=== PATIENT | female | born 1995 | race Caucasian/White ===

== ENCOUNTER → 2016-09-21 | Outpatient (CLI) | payer BC | LOC: MW.CHOBGYN 09:10 | PROVIDERS: ATTEND Advanced Practice Midwife | DX: Z34.90 Encounter for supervision of normal pregnancy, unspecified, unspecified trimester (principal) | CPT/HCPCS: 36415; 80305; 81003; 85025; 86592; 86762; 86803; 86850; 86900; 86901; 87070; 87086; 87340; 87389; 87491; 87591; G0145 ==

== ENCOUNTER → 2016-10-19 | Outpatient (CLI) | payer BC | LOC: MW.CHOBGYN 10:03 | PROVIDERS: ATTEND Advanced Practice Midwife | DX: Z34.90 Encounter for supervision of normal pregnancy, unspecified, unspecified trimester (principal) | CPT/HCPCS: 36415; 82105; 82677; 84702; 86336 ==

== ENCOUNTER 2017-04-03 11:01 | Inpatient (IN) | payer BC ==
[2017-04-03] MEDS ORDERED: Nalbuphine 10 MG/1 ML Vial IVPUSH PRN (15:29)
[2017-04-03] MEDS ORDERED: Carboprost Tromethamine 250 MCG/1 ML Amp IM PRN (15:29)
[2017-04-03] MEDS ORDERED: Terbutaline 1 MG/ML SDV SUBCUT PRN (15:29)
[2017-04-03] MEDS ORDERED: Sodium Chloride 0.9% 2.5 ML Syringe FLUSH PRN (15:29)
[2017-04-03] MEDS ORDERED: Water For Irrigation,Sterile 1,000 ML Container IRR PRN (15:29)
[2017-04-03] MEDS ORDERED: Misoprostol 200 MCG Tab PO PRN (15:29)
[2017-04-03] MEDS ORDERED: Sodium Chloride 0.9% 10 ML Syringe FLUSH PRN (15:29)
[2017-04-03] MEDS ORDERED: Methylergonovine 0.2 MG/1 ML Amp IM PRN (15:29)
[2017-04-03] MEDS ORDERED: Lidocaine 1% 50 ML MDV INJECT PRN (15:29)
[2017-04-03] MEDS ORDERED: Oxytocin/0.9 % Sodium Chloride 30 UNIT/500 ML BAG IV SCH ×2 (15:30→20:00)
[2017-04-03] MEDS ORDERED: Misoprostol 25 MCG (1/4 of 100 MCG) Tab PO SCH (16:00)
[2017-04-03] MEDS ORDERED: Misoprostol 25 MCG (1/4 of 100 MCG) Tab VAG SCH (16:00)
[2017-04-03] MEDS ORDERED: Ampicillin 2 GM in Sodium Chloride 0.9% 100 ML IV ONE (16:00)
[2017-04-03] MEDS: Lactated Ringers 1,000 ML IV SCH ×3 (16:01→22:40)
[2017-04-03] MEDS ORDERED: Misoprostol 25 MCG (1/4 of 100 MCG) Tab PO PRN (20:00)
[2017-04-03] MEDS ORDERED: Misoprostol 25 MCG (1/4 of 100 MCG) Tab VAG PRN (20:00)
[2017-04-03] MEDS: Ampicillin 1 GM in Sodium Chloride 0.9% 50 ML IV SCH (22:17)
[2017-04-03] MEDS ORDERED: fentaNYL 100 MCG/2 ML SDV ONE (22:34)
[2017-04-03] MEDS ORDERED: Ropivacaine 0.2% 2 MG/ML 20 ML SDV ONE (22:35)
[2017-04-03] MEDS ORDERED: Ropivacaine HCl/PF 100 ML ONE (22:36)
--- NOTE | 2017-04-03 22:49 | PCM.LDHP ---
L&D History of Present Illness - General Date of Service: 04/03/17 Admit Problem/Dx: Patient Status Order with Admit Dx/Problem 04/03/17 11:15 Patient Status [ADT] Routine Admission Diagnosis/Problem Admission Diagnosis/Problem Source of Information: Patient History Limitations: Reports: No Limitations - History of Present Illness Pain Score: 10 Improves with: Reports: None Worsens with: Reports: None Associated Symptoms: Reports: N - Related Data Allergies/Adverse Reactions: Allergies Allergy/AdvReac Type Severity Reaction Status Date / Time Sulfa (Sulfonamide Allergy Rash Verified 04/01/17 19:53 Antibiotics) Home Medications: Home Meds Vit W-Ca,Fe,FA(<1 mg) [ Vitamins] 1 tab PO DAILY 04/01/17 [ History] Past Medical History - Past Health History Medical/Surgical History: Denies Medical/Surgical History Social & Family History - Family History Family Medical History: Noncontributory - Tobacco Use Smoking Status *Q: Never Smoker Second Hand Smoke Exposure: No - Caffeine Use Caffeine Use: Reports: None - Alcohol Use Days Per Week of Alcohol Use: 0 - Recreational Drug Use Recreational Drug Use: No H&P Review of Systems - Review of Systems: Review Of Systems: See Below General: Reports: No Symptoms HEENT: Reports: No Symptoms Pulmonary: Reports: No Symptoms Cardiovascular: Reports: No Symptoms Gastrointestinal: Reports: No Symptoms Genitourinary: Reports: No Symptoms Musculoskeletal: Reports: No Symptoms Skin: Reports: No Symptoms Psychiatric: Reports: No Symptoms Neurological: Reports: No Symptoms Hematologic/Lymphatic: Reports: No Symptoms Immunologic: Reports: No Symptoms L&D Exam - Exam Exam: See Below - Vital Signs Weight: 64.864 kg - OB Specific Fundal Height In cm: 37 Contraction Intensity: Moderate to Strong Movement: Active Heart Tones: Present Presentation: Vertex - Vergara Score Vergara Score Cervix Position: Midposition Vergara Score Consistency: Medium Vergara Score Effacement: 51-70% Vergara Score Dilation: 3-4 cm Vergara Score 's Station: -2 Vergara Score Total: 7 - Exam General: Alert, Oriented HEENT: PERRLA, Conjunctiva Clear, EACs Clear, EOMI, Hearing Intact, Mucosa Moist & [place], Nares Patent, Normal Nasal Septum, Posterior Pharynx Clear, TMs Clear Neck: Supple, Trachea Midline Lungs: Clear to Auscultation, Normal Respiratory Effort Cardiovascular: Regular Rate, Regular Rhythm GI/Abdominal Exam: Normal Bowel Sounds, Soft, Non-Tender, No Organomegaly, No Distention, No Abnormal Bruit, No Mass, Pelvis Stable Rectal Exam: Normal Exam, Normal Rectal Tone Genitourinary: Normal external exam, Normal bimanual exam, Normal speculum exam Back Exam: Normal Inspection, Full Range of Motion Extremities: Normal Inspection, Normal Range of Motion, Non-Tender, No Pedal Edema, Normal Capillary Refill Skin: Warm, Dry, Intact Neurological: Cranial Nerves Intact, Reflexes Equal Bilateral Psychiatric: Alert, Normal Affect, Normal Mood - Patient Data Lab Results Last 24 hrs: Laboratory Results - last 24 hr 04/03/17 04/03/17 Range/Units 15:55 15:55 WBC 6.25 (4.0-11.0) K/uL RBC 4.34 (4.30-5.90) M/uL Hgb 12.6 (12.0-16.0) g/dL Hct 36.6 (36.0-46.0) % MCV 84.3 (80.0-98.0) fL MCH 29.0 (27.0-32.0) pg MCHC 34.4 (31.0-37.0) g/dL RDW Std Deviation 42.6 (28.0-62.0) fl RDW Coeff of Raz 14 (11.0-15.0) % Plt Count 163 (150-400) K/uL MPV 12.10 H (7.40-12.00) fL Nucleated RBC % 0.0 /100WBC Nucleated RBCs # 0 K/uL Blood Type O POSITIVE Antibody Screen NEGATIVE Result Diagrams: 04/03/17 15:55 Problem List Initiated/Reviewed/Updated: Yes Orders Last 24hrs: Active Orders 24 hr Category Date Time Status Patient Status [ADT] Routine ADT 04/03/17 11:15 Active Bedrest Bathroom Privileges [RC] ASDIRECTED Care 04/03/17 15:29 Active Communication Order [RC] ASDIRECTED Care 04/03/17 15:29 Active Communication Order [RC] ASDIRECTED Care 04/03/17 15:29 Active Communication Order [RC] ASDIRECTED Care 04/03/17 15:29 Active Heart Tones [RC] CONTINUOUS Care 04/03/17 15:29 Active Non Stress Test [RC] PER UNIT ROUTINE Care 04/03/17 15:29 Active May Shower [RC] ASDIRECTED Care 04/03/17 15:29 Active Notify Provider [RC] PRN Care 04/03/17 15:29 Active Notify Provider [RC] PRN Care 04/03/17 15:29 Active Notify Provider [RC] PRN Care 04/03/17 15:29 Active Notify Provider [RC] STAT Care 04/03/17 15:29 Active Oxygen Therapy [RC] ASDIRECTED Care 04/03/17 15:29 Active Peripheral IV Care [RC] . DIRECTED Care 04/03/17 15:29 Active Up ad Alisha [RC] ASDIRECTED Care 04/03/17 15:29 Active Vaginal Exam [RC] PRN Care 04/03/17 15:29 Active Vaginal Exam [RC] PRN Care 04/03/17 15:29 Active Vital Signs [RC] PER UNIT ROUTINE Care 04/03/17 15:29 Active Vital Signs [RC] PER UNIT ROUTINE Care 04/03/17 15:29 Active Regular Diet [DIET] Diet 04/03/17 Dinner Active Ampicillin 1 gm Med 04/03/17 20:00 Active Sodium Chloride 0.9% [Normal Saline] 50 ml IV Q4H Carboprost Tromethamine [Hemabate DS] Med 04/03/17 15:29 Active 250 mcg IM ASDIRECTED PRN Lactated Ringers [Ringers, Lactated] 1,000 ml Med 04/03/17 15:30 Active IV ASDIRECTED Lidocaine 1% [Xylocaine 1%] Med 04/03/17 15:29 Active 50 ml INJECT .ONCE PRN Methylergonovine [Methergine] Med 04/03/17 15:29 Active 0.2 mg IM ASDIRECTED PRN Misoprostol [Cytotec] Med 04/03/17 15:29 Active 200 mcg PO .ONCE PRN Misoprostol [Cytotec] Med 04/03/17 16:00 Active 25 mcg PO .ONCE Misoprostol [Cytotec] Med 04/03/17 20:00 Active 25 mcg PO Q4H PRN Misoprostol [Cytotec] Med 04/03/17 16:00 Active 25 mcg VAG .ONCE Misoprostol [Cytotec] Med 04/03/17 20:00 Active 25 mcg VAG Q4H PRN Nalbuphine [Nubain] Med 04/03/17 15:29 Active 10 mg IVPUSH Q1H PRN Oxytocin/0.9 % Sodium Chloride [Oxytocin 30 Unit/500 ML Med 04/03/17 15:30 Active -NS] 30 unit in 500 ml IV TITRATE Oxytocin/0.9 % Sodium Chloride [Oxytocin 30 Unit/500 ML Med 04/03/17 20:00 Active -NS] 30 unit in 500 ml IV TITRATE Sodium Chloride 0.9% [Saline Flush] Med 04/03/17 15:29 Active 10 ml FLUSH ASDIRECTED PRN Sodium Chloride 0.9% [Saline Flush] Med 04/03/17 15:29 Active 2.5 ml FLUSH ASDIRECTED PRN Terbutaline [Brethine] Med 04/03/17 15:29 Active 0.25 mg SUBCUT ASDIRECTED PRN Water For Irrigation,Sterile [Sterile Water for Med 04/03/17 15:29 Active Irrigation] 1,000 ml IRR ASDIRECTED PRN Scalp Electrode [WOMSER] Per Unit Routine Oth 04/03/17 15:29 Ordered Medication Administration Instruction [OM.PC] Q3H Oth 04/03/17 15:30 Ordered Peripheral IV Insertion Adult [OM.PC] Routine Oth 04/03/17 15:29 Ordered Resuscitation Status Routine Resus Stat 04/03/17 15:29 Ordered Medication Orders Carboprost Tromethamine (Hemabate Ds) 250 mcg IM ASDIRECTED PRN PRN Reason: Post Hemorrhage Ampicillin Sodium 1 gm/ Sodium (Chloride) 50 mls @ 100 mls/hr IV Q4H [facility] Last Admin: 04/03/17 22:17 Dose: 100 mls/hr Lactated Ringer's (Ringers, Lactated) 1,000 mls @ 150 mls/hr IV ASDIRECTED [facility] Last Admin: 04/03/17 22:40 Dose: 150 mls/hr Infusion: 04/03/17 22:40 Dose: 999 mls/hr Admin: 04/03/17 18:29 Dose: 150 mls/hr Infusion: 04/03/17 18:29 Dose: 150 mls/hr Admin: 11/04/17 16:01 Dose: 150 mls/hr Oxytocin/Sodium Chloride (Oxytocin 30 Unit/500 Ml-Ns) 30 unit in 500 mls @ 250 mls/hr IV TITRATE [facility] Oxytocin/Sodium Chloride (Oxytocin 30 Unit/500 Ml-Ns) 30 unit in 500 mls @ 2 mls/hr IV TITRATE [facility]; 2 MUNITS/MIN PRN Reason: Protocol Lidocaine HCl (Xylocaine 1%) 50 ml INJECT .ONCE PRN PRN Reason: Laceration repair Methylergonovine Maleate (Methergine) 0.2 mg IM ASDIRECTED PRN PRN Reason: Post Hemorrhage Misoprostol (Cytotec) 200 mcg PO .ONCE PRN PRN Reason: Post Hemorrhage Misoprostol (Cytotec) 25 mcg VAG .ONCE [facility] Last Admin: 04/03/17 18:36 Dose: 25 mcg Misoprostol (Cytotec) 25 mcg VAG Q4H PRN PRN Reason: Cervical Ripening Misoprostol (Cytotec) 25 mcg PO .ONCE [facility] Last Admin: 04/03/17 18:36 Dose: 25 mcg Misoprostol (Cytotec) 25 mcg PO Q4H PRN PRN Reason: Cervical Ripening Nalbuphine HCl (Nubain) 10 mg IVPUSH Q1H PRN PRN Reason: Pain (severe 7-10) Last Admin: 04/03/17 22:16 Dose: 10 mg Sodium Chloride (Saline Flush) 10 ml FLUSH ASDIRECTED PRN PRN Reason: Keep Vein Open Sodium Chloride (Saline Flush) 2.5 ml FLUSH ASDIRECTED PRN PRN Reason: Keep Vein Open Sterile Water (Sterile Water For Irrigation) 1,000 ml IRR ASDIRECTED PRN PRN Reason: delivery Terbutaline Sulfate (Brethine) 0.25 mg SUBCUT ASDIRECTED PRN PRN Reason: Tacysystole Assessment/Plan Comment:: Term admitted for elective induction. with Cytotec and pitocin. Cxis /v/-3. Pt can havr epidural if she needed.
--- NOTE | 2017-04-03 23:25 | PCM.PREANE ---
Preanesthetic Assessment - Anesthesia/Transfusion/Family Hx Anesthesia History: No Prior Anesthesia Family History of Anesthesia Reaction: No Transfusion History: No Prior Transfusion(s) - Review of Systems General: No Symptoms Pulmonary: No Symptoms Cardiovascular: No Symptoms Gastrointestinal: No Symptoms Neurological: No Symptoms Other: Reports: None (Denies any personal or family hx of bleeding or clotting problems) - Physical Assessment Height: 1.57 m Weight: 64.864 kg ASA Class: 2 Mental Status: Alert & Oriented x3 Airway Class: Mallampati = 2 Dentition: Reports: Normal Dentition ROM/Head Extension: Full - Lab Values: Laboratory Last Values WBC 6.25 K/uL (4.0-11.0) 04/03/17 15:55 RBC 4.34 M/uL (4.30-5.90) 04/03/17 15:55 Hgb 12.6 g/dL (12.0-16.0) 04/03/17 15:55 Hct 36.6 % (36.0-46.0) 04/03/17 15:55 MCV 84.3 fL (80.0-98.0) 04/03/17 15:55 MCH 29.0 pg (27.0-32.0) 04/03/17 15:55 MCHC 34.4 g/dL (31.0-37.0) 04/03/17 15:55 RDW Std Deviation 42.6 fl (28.0-62.0) 04/03/17 15:55 RDW Coeff of Raz 14 % (11.0-15.0) 04/03/17 15:55 Plt Count 163 K/uL (150-400) 04/03/17 15:55 MPV 12.10 fL (7.40-12.00) H 04/03/17 15:55 Nucleated RBC % 0.0 /100WBC 04/03/17 15:55 Nucleated RBCs # 0 K/uL 04/03/17 15:55 Blood Type O POSITIVE 04/03/17 15:55 Antibody Screen NEGATIVE 04/03/17 15:55 - Allergies Allergies/Adverse Reactions: Allergies Allergy/AdvReac Type Severity Reaction Status Date / Time Sulfa (Sulfonamide Allergy Rash Verified 04/01/17 19:53 Antibiotics) - Acknowledgements Anesthesia Type Planned: Epidural Pt an Appropriate Candidate for the Planned Anesthesia: Yes Alternatives and Risks of Anesthesia Discussed w Pt/Guardian: Yes Pt/Guardian Understands and Agrees with Anesthesia Plan: Yes PreAnesthesia Questionnaire - Past Health History Medical/Surgical History: Denies Medical/Surgical History - SUBSTANCE USE Smoking Status *Q: Never Smoker Tobacco Use Within Last Twelve Months: No Second Hand Smoke Exposure: No Days Per Week of Alcohol Use: 0 Recreational Drug Use History: No - HOME MEDS Home Medications: Home Meds Vit W-Ca,Fe,FA(<1 mg) [ Vitamins] 1 tab PO DAILY 04/01/17 [ History] - CURRENT (IN HOUSE) MEDS Current Meds: Current Medications Carboprost Tromethamine (Hemabate Ds) 250 mcg IM ASDIRECTED PRN PRN Reason: Post Hemorrhage Ampicillin Sodium 1 gm/ Sodium (Chloride) 50 mls @ 100 mls/hr IV Q4H [facility] Last Admin: 04/03/17 22:17 Dose: 100 mls/hr Lactated Ringer's (Ringers, Lactated) 1,000 mls @ 150 mls/hr IV ASDIRECTED [facility] Last Admin: 04/03/17 22:40 Dose: 150 mls/hr Oxytocin/Sodium Chloride (Oxytocin 30 Unit/500 Ml-Ns) 30 unit in 500 mls @ 250 mls/hr IV TITRATE [facility] Oxytocin/Sodium Chloride (Oxytocin 30 Unit/500 Ml-Ns) 30 unit in 500 mls @ 2 mls/hr IV TITRATE [facility]; 2 MUNITS/MIN PRN Reason: Protocol Lidocaine HCl (Xylocaine 1%) 50 ml INJECT .ONCE PRN PRN Reason: Laceration repair Methylergonovine Maleate (Methergine) 0.2 mg IM ASDIRECTED PRN PRN Reason: Post Hemorrhage Misoprostol (Cytotec) 200 mcg PO .ONCE PRN PRN Reason: Post Hemorrhage Misoprostol (Cytotec) 25 mcg VAG .ONCE [facility] Last Admin: 04/03/17 18:36 Dose: 25 mcg Misoprostol (Cytotec) 25 mcg VAG Q4H PRN PRN Reason: Cervical Ripening Misoprostol (Cytotec) 25 mcg PO .ONCE [facility] Last Admin: 04/03/17 18:36 Dose: 25 mcg Misoprostol (Cytotec) 25 mcg PO Q4H PRN PRN Reason: Cervical Ripening Nalbuphine HCl (Nubain) 10 mg IVPUSH Q1H PRN PRN Reason: Pain (severe 7-10) Last Admin: 04/03/17 22:16 Dose: 10 mg Sodium Chloride (Saline Flush) 10 ml FLUSH ASDIRECTED PRN PRN Reason: Keep Vein Open Sodium Chloride (Saline Flush) 2.5 ml FLUSH ASDIRECTED PRN PRN Reason: Keep Vein Open Sterile Water (Sterile Water For Irrigation) 1,000 ml IRR ASDIRECTED PRN PRN Reason: delivery Terbutaline Sulfate (Brethine) 0.25 mg SUBCUT ASDIRECTED PRN PRN Reason: Tacysystole Discontinued Medications Fentanyl (Sublimaze) Confirm Administered Dose 300 mcg .ROUTE .STK-MED ONE Stop: 04/03/17 22:35 Ampicillin Sodium 2 gm/ Sodium (Chloride) 100 mls @ 200 mls/hr IV ONETIME ONE Stop: 04/03/17 16:29 Last Admin: 04/03/17 18:25 Dose: 200 mls/hr Ropivacaine (Naropin 0.2%) Confirm Administered Dose 100 mls @ as directed .ROUTE .STK-MED ONE Stop: 04/03/17 22:37 Ropivacaine (Naropin 0.2%) Confirm Administered Dose 20 ml .ROUTE .STK-MED ONE Stop: 04/03/17 22:36
[2017-04-04] MEDS: Ampicillin 1 GM in Sodium Chloride 0.9% 50 ML IV SCH ×3 (01:36→09:54)
[2017-04-04] MEDS: Lactated Ringers 1,000 ML IV SCH (05:08)
[2017-04-04] MEDS ORDERED: fentaNYL 100 MCG/2 ML SDV ONE (08:36)
[2017-04-04] MEDS ORDERED: Ropivacaine HCl/PF 100 ML ONE (08:36)
[2017-04-04] MEDS ORDERED: Docusate Sodium 100 MG Cap PO PRN (10:56)
[2017-04-04] MEDS ORDERED: Ibuprofen 400 MG Tab PO PRN (10:56)
[2017-04-04] MEDS ORDERED: Witch Hazel Medicated Pads 40/Jar TOP PRN (10:56)
[2017-04-04] MEDS ORDERED: Bisacodyl 10 MG Supp RECTAL PRN (10:56)
[2017-04-04] MEDS ORDERED: Acetaminophen 500 MG Tab PO PRN ×2 (10:56)
[2017-04-04] MEDS ORDERED: Lanolin 100% Cream 7 GM Tube TOP PRN (10:56)
[2017-04-04] MEDS ORDERED: Benzocaine/Menthol 20%-0.5% Spray 78 GM Cannister TOP PRN (10:56)
[2017-04-04] MEDS ORDERED: oxyCODONE 5 MG Tab PO PRN (10:56)
[2017-04-04] MEDS: Ibuprofen 800 MG Tab PO PRN (12:07)
--- NOTE | 2017-04-04 14:38 | OR ---
SURGEON: Héctor Lowe MD DATE OF PROCEDURE: DELIVERY NOTE: Austin is 21-year-old primigravida. She is 40 weeks plus 3. She is admitted for elective induction with Cytotec and Pitocin. She responded to the Cytotec adequately and after one dose of Cytotec, the patient was 4 cm complete vertex and -3 with intact bag of water. She had epidural anesthesia for labor analgesia and then the patient did not require any Pitocin. She progressed on her own. She became complete-complete at 4 o'clock in the morning and with bulging bag of water, artificial rupture of the membranes done by me and it was meconium-tinged amniotic fluid. The patient is continued to progress and she started pushing and she was allowed to rest to let the epidural wear down and then when that happened that she was able to push and accomplish normal spontaneous vaginal delivery of a female fetus. scores reported 8 and 9, and Dr. Castro attended the delivery. The placenta delivered spontaneous complete and intact without any problem. There was a small first-degree perineal laceration, it was repaired with 3-0 Vicryl after infiltrating the area with 1% Xylocaine. The heart rate was category 1 through the entire process of labor. There was no complication. Estimated blood loss was 250 to 300 mL. OMA / MARCO ANTONIO /[id number]
--- NOTE | 2017-04-05 08:38 | PCM48HPAN ---
Post Anesthesia Note - EVALUATION WITHIN 48HRS OF ANESTHETIC Vital Signs in Normal Range: Yes Patient Participated in Evaluation: Yes Respiratory Function Stable: Yes Airway Patent: Yes Cardiovascular Function Stable: Yes Hydration Status Stable: Yes Pain Control Satisfactory: Yes (a "little" back pain") Nausea and Vomiting Control Satisfactory: Yes Mental Status Recovered: Yes
--- NOTE | 2017-04-05 14:00 | PCM.PNPP ---
- General Info Date of Service: 04/05/17 Functional Status: Reports: Pain Controlled - Review of Systems General: Reports: No Symptoms HEENT: Reports: No Symptoms Pulmonary: Reports: No Symptoms Cardiovascular: Reports: No Symptoms Gastrointestinal: Reports: No Symptoms Genitourinary: Reports: No Symptoms Musculoskeletal: Reports: No Symptoms Skin: Reports: No Symptoms Neurological: Reports: No Symptoms Psychiatric: Reports: No Symptoms - General Info Date of Service: 04/05/17 - Patient Data Vital Signs - Most Recent: Last Vital Signs Temp 37.0 C 04/05/17 11:41 Pulse 85 04/05/17 11:41 Resp 14 04/05/17 11:41 BP 124/59 L 04/05/17 11:41 Pulse Ox 97 04/05/17 11:41 Weight - Most Recent: 64.864 kg I&O - Last 24 Hours: Intake & Output 04/04/17 04/05/17 04/05/17 22:59 06:59 14:59 Output Total 700 Balance -700 Lab Results - Last 24 Hours: Laboratory Results - last 24 hr 04/03/17 04/05/17 Range/Units 15:55 05:05 Hgb 9.9 L (12.0-16.0) g/dL Hct 29.3 L (36.0-46.0) % Blood Type O POSITIVE Med Orders - Current: Current Medications Acetaminophen (Tylenol Extra Strength) 500 mg PO Q4H PRN PRN Reason: Pain Last Admin: 04/04/17 15:43 Dose: 500 mg Acetaminophen (Tylenol Extra Strength) 1,000 mg PO Q4H PRN PRN Reason: Pain Last Admin: 04/04/17 12:07 Dose: 1,000 mg Benzocaine/Menthol (Dermoplast Pain Relief 20%-0.5% [place]) 78 gm TOP ASDIRECTED PRN PRN Reason: Perineal Comfort Measure Bisacodyl (Dulcolax) 10 mg RECTAL .ONCE PRN PRN Reason: Constipation Carboprost Tromethamine (Hemabate Ds) 250 mcg IM ASDIRECTED PRN PRN Reason: Post Hemorrhage Docusate Sodium (Colace) 100 mg PO BID PRN PRN Reason: Constipation Last Admin: 04/04/17 12:08 Dose: 100 mg Emollient Ointment (Lansinoh Hpa) 0 gm TOP ASDIRECTED PRN PRN Reason: Sore Nipples Ampicillin Sodium 1 gm/ Sodium (Chloride) 50 mls @ 100 mls/hr IV Q4H [facility] Last Admin: 04/04/17 09:54 Dose: 100 mls/hr Lactated Ringer's (Ringers, Lactated) 1,000 mls @ 150 mls/hr IV ASDIRECTED [facility] Last Admin: 04/04/17 05:08 Dose: 150 mls/hr Oxytocin/Sodium Chloride (Oxytocin 30 Unit/500 Ml-Ns) 30 unit in 500 mls @ 250 mls/hr IV TITRATE [facility] Last Admin: 04/04/17 10:50 Dose: 500 mls/hr Oxytocin/Sodium Chloride (Oxytocin 30 Unit/500 Ml-Ns) 30 unit in 500 mls @ 2 mls/hr IV TITRATE [facility]; 2 MUNITS/MIN PRN Reason: Protocol Ibuprofen (Motrin) 400 mg PO Q4H PRN PRN Reason: Pain Ibuprofen (Motrin) 800 mg PO Q6H PRN PRN Reason: Pain Last Admin: 04/04/17 12:07 Dose: 800 mg Lidocaine HCl (Xylocaine 1%) 50 ml INJECT .ONCE PRN PRN Reason: Laceration repair Last Admin: 04/04/17 11:29 Dose: 50 ml Methylergonovine Maleate (Methergine) 0.2 mg IM ASDIRECTED PRN PRN Reason: Post Hemorrhage Misoprostol (Cytotec) 200 mcg PO .ONCE PRN PRN Reason: Post Hemorrhage Misoprostol (Cytotec) 25 mcg VAG .ONCE [facility] Last Admin: 04/03/17 18:36 Dose: 25 mcg Misoprostol (Cytotec) 25 mcg VAG Q4H PRN PRN Reason: Cervical Ripening Misoprostol (Cytotec) 25 mcg PO .ONCE [facility] Last Admin: 04/03/17 18:36 Dose: 25 mcg Misoprostol (Cytotec) 25 mcg PO Q4H PRN PRN Reason: Cervical Ripening Nalbuphine HCl (Nubain) 10 mg IVPUSH Q1H PRN PRN Reason: Pain (severe 7-10) Last Admin: 04/03/17 22:16 Dose: 10 mg Oxycodone HCl (Oxycodone) 5 mg PO Q2H PRN PRN Reason: Pain Sodium Chloride (Saline Flush) 10 ml FLUSH ASDIRECTED PRN PRN Reason: Keep Vein Open Sodium Chloride (Saline Flush) 2.5 ml FLUSH ASDIRECTED PRN PRN Reason: Keep Vein Open Sterile Water (Sterile Water For Irrigation) 1,000 ml IRR ASDIRECTED PRN PRN Reason: delivery Last Admin: 04/04/17 11:28 Dose: 1,000 ml Terbutaline Sulfate (Brethine) 0.25 mg SUBCUT ASDIRECTED PRN PRN Reason: Tacysystole Witch Enedelia (Tucks) 1 pad TOP ASDIRECTED PRN PRN Reason: comfort care Discontinued Medications Fentanyl (Sublimaze) Confirm Administered Dose 300 mcg .ROUTE .STK-MED ONE Stop: 04/03/17 22:35 Fentanyl (Sublimaze) Confirm Administered Dose 200 mcg .ROUTE .STK-MED ONE Stop: 04/04/17 08:37 Ampicillin Sodium 2 gm/ Sodium (Chloride) 100 mls @ 200 mls/hr IV ONETIME ONE Stop: 04/03/17 16:29 Last Admin: 04/03/17 18:25 Dose: 200 mls/hr Ropivacaine (Naropin 0.2%) Confirm Administered Dose 100 mls @ as directed .ROUTE .STK-MED ONE Stop: 04/03/17 22:37 Ropivacaine (Naropin 0.2%) Confirm Administered Dose 100 mls @ as directed .ROUTE .STK-MED ONE Stop: 04/04/17 08:37 Ropivacaine (Naropin 0.2%) Confirm Administered Dose 20 ml .ROUTE .STK-MED ONE Stop: 04/03/17 22:36 - Infant Interaction Disposition, : in Room with Family Infant Interaction: Holding Infant Infant Feeding: Attempted ; Nursed Fair/Poor Support Person: , Significant Other - Recovery Exam Fundal Tone: Firm Fundal Level: At Umbilicus Fundal Placement: Midline Lochia Amount: Scant Lochia Color: Rubra/Red Perineum Description: Intact, Minimal Bruising/Swelling Episiotomy/Laceration: Approximated Bladder Status: Voiding Urinary Elimination: Not Voiding - Exam General: Alert, Oriented HEENT: Pupils Equal Neck: Supple Lungs: Clear to Auscultation, Normal Respiratory Effort Cardiovascular: Regular Rate, Regular Rhythm GI/Abdominal Exam: Normal Bowel Sounds, Soft, Non-Tender, No Organomegaly, No Distention, No Abnormal Bruit, No Mass, Pelvis Stable Extremities: Normal Inspection, Normal Range of Motion, Non-Tender, No Pedal Edema, Normal Capillary Refill Skin: Warm, Dry, Intact Wound/Incisions: Healing Well Neurological: No New Focal Deficit Psy/Mental Status: Alert, Normal Affect, Normal Mood - Problem List Review Problem List Initiated/Reviewed/Updated: Yes - Plan Plan:: Term admitted for elective induction. with Cytotec and pitocin. Cxis /v/-3. Pt can havr epidural if she needed.
[2017-04-06 07:46] VITALS: BP 117/65
--- NOTE | 2017-04-06 07:58 | PCM.DCSUM1 ---
Discharge Summary - Hospital Course Free Text/Narrative:: Discharge home today. Follow up 6 weeks or sooner if needed. - Discharge Data Discharge Date: 04/06/17 Discharge Disposition: DC/Tfer to SNF 03 Condition: Good - Discharge Diagnosis/Problem(s) (1) Supervision of normal IUP (intrauterine ) in primigravida SNOMED Code(s): 58141491, 835473668, 584869714 ICD Code: Z34.00 - ENCNTR FOR SUPRVSN OF NORMAL FIRST , UNSP TRIMESTER Status: Acute Priority: High Current Visit: Yes Qualifiers: Trimester: third trimester Qualified Code(s): Z34.03 - Encounter for supervision of normal first , third trimester (2) (normal spontaneous vaginal delivery) SNOMED Code(s): 28620811 ICD Code: O80 - ENCOUNTER FOR FULL-TERM UNCOMPLICATED DELIVERY Status: Acute Priority: High Current Visit: Yes - Patient Instructions Diet: Usual Diet as Tolerated Activity: As Tolerated, Rest and Relax Today Driving: May Drive Today Showering/Bathing: May Shower Notify Provider of: Fever, Increased Pain, Swelling and Redness, Nausea and/or Vomiting Other/Special Instructions: Discharge home today. Follow up 6 weeks or sooner if needed. - Discharge Plan Home Medications: Home Meds Vit W-Ca,Fe,FA(<1 mg) [ Vitamins] 1 tab PO DAILY 04/01/17 [ History] - General Info Date of Service: 04/06/17 Admission Dx/Problem (Free Text: Patient Status Order with Admit Dx/Problem 04/03/17 11:15 Patient Status [ADT] Routine Admission Diagnosis/Problem Admission Diagnosis/Problem Functional Status: Reports: Pain Controlled, Tolerating Diet, Ambulating, Urinating - Review of Systems General: Reports: No Symptoms HEENT: Reports: No Symptoms Pulmonary: Reports: No Symptoms Cardiovascular: Reports: No Symptoms Gastrointestinal: Reports: No Symptoms Genitourinary: Reports: No Symptoms Musculoskeletal: Reports: No Symptoms Skin: Reports: No Symptoms Neurological: Reports: No Symptoms Psychiatric: Reports: No Symptoms - Patient Data Vitals - Most Recent: Last Vital Signs Temp 37.3 C 04/06/17 07:00 Pulse 89 04/06/17 07:00 Resp 16 04/06/17 07:00 BP 117/65 04/06/17 07:00 Pulse Ox 96 04/06/17 07:00 Weight - Most Recent: 64.864 kg Lab Results - Last 24 hrs: Laboratory Results - last 24 hr 04/03/17 Range/Units 15:55 Blood Type O POSITIVE Med Orders - Current: Current Medications Acetaminophen (Tylenol Extra Strength) 500 mg PO Q4H PRN PRN Reason: Pain Last Admin: 04/04/17 15:43 Dose: 500 mg Acetaminophen (Tylenol Extra Strength) 1,000 mg PO Q4H PRN PRN Reason: Pain Last Admin: 04/04/17 12:07 Dose: 1,000 mg Benzocaine/Menthol (Dermoplast Pain Relief 20%-0.5% [place]) 78 gm TOP ASDIRECTED PRN PRN Reason: Perineal Comfort Measure Bisacodyl (Dulcolax) 10 mg RECTAL .ONCE PRN PRN Reason: Constipation Carboprost Tromethamine (Hemabate Ds) 250 mcg IM ASDIRECTED PRN PRN Reason: Post Hemorrhage Docusate Sodium (Colace) 100 mg PO BID PRN PRN Reason: Constipation Last Admin: 04/04/17 12:08 Dose: 100 mg Emollient Ointment (Lansinoh Hpa) 0 gm TOP ASDIRECTED PRN PRN Reason: Sore Nipples Ampicillin Sodium 1 gm/ Sodium (Chloride) 50 mls @ 100 mls/hr IV Q4H [facility] Last Admin: 04/04/17 09:54 Dose: 100 mls/hr Lactated Ringer's (Ringers, Lactated) 1,000 mls @ 150 mls/hr IV ASDIRECTED [facility] Last Admin: 04/04/17 05:08 Dose: 150 mls/hr Oxytocin/Sodium Chloride (Oxytocin 30 Unit/500 Ml-Ns) 30 unit in 500 mls @ 250 mls/hr IV TITRATE [facility] Last Admin: 04/04/17 10:50 Dose: 500 mls/hr Oxytocin/Sodium Chloride (Oxytocin 30 Unit/500 Ml-Ns) 30 unit in 500 mls @ 2 mls/hr IV TITRATE [facility]; 2 MUNITS/MIN PRN Reason: Protocol Ibuprofen (Motrin) 400 mg PO Q4H PRN PRN Reason: Pain Ibuprofen (Motrin) 800 mg PO Q6H PRN PRN Reason: Pain Last Admin: 04/04/17 12:07 Dose: 800 mg Lidocaine HCl (Xylocaine 1%) 50 ml INJECT .ONCE PRN PRN Reason: Laceration repair Last Admin: 04/04/17 11:29 Dose: 50 ml Methylergonovine Maleate (Methergine) 0.2 mg IM ASDIRECTED PRN PRN Reason: Post Hemorrhage Misoprostol (Cytotec) 200 mcg PO .ONCE PRN PRN Reason: Post Hemorrhage Misoprostol (Cytotec) 25 mcg VAG .ONCE [facility] Last Admin: 04/03/17 18:36 Dose: 25 mcg Misoprostol (Cytotec) 25 mcg VAG Q4H PRN PRN Reason: Cervical Ripening Misoprostol (Cytotec) 25 mcg PO .ONCE [facility] Last Admin: 04/03/17 18:36 Dose: 25 mcg Misoprostol (Cytotec) 25 mcg PO Q4H PRN PRN Reason: Cervical Ripening Nalbuphine HCl (Nubain) 10 mg IVPUSH Q1H PRN PRN Reason: Pain (severe 7-10) Last Admin: 04/03/17 22:16 Dose: 10 mg Oxycodone HCl (Oxycodone) 5 mg PO Q2H PRN PRN Reason: Pain Sodium Chloride (Saline Flush) 10 ml FLUSH ASDIRECTED PRN PRN Reason: Keep Vein Open Sodium Chloride (Saline Flush) 2.5 ml FLUSH ASDIRECTED PRN PRN Reason: Keep Vein Open Sterile Water (Sterile Water For Irrigation) 1,000 ml IRR ASDIRECTED PRN PRN Reason: delivery Last Admin: 04/04/17 11:28 Dose: 1,000 ml Terbutaline Sulfate (Brethine) 0.25 mg SUBCUT ASDIRECTED PRN PRN Reason: Tacysystole Witch Enedelia (Tucks) 1 pad TOP ASDIRECTED PRN PRN Reason: comfort care Discontinued Medications Fentanyl (Sublimaze) Confirm Administered Dose 300 mcg .ROUTE .STK-MED ONE Stop: 04/03/17 22:35 Last Admin: 04/05/17 20:13 Dose: Not Given Fentanyl (Sublimaze) Confirm Administered Dose 200 mcg .ROUTE .STK-MED ONE Stop: 04/04/17 08:37 Last Admin: 04/05/17 19:46 Dose: Not Given Ampicillin Sodium 2 gm/ Sodium (Chloride) 100 mls @ 200 mls/hr IV ONETIME ONE Stop: 04/03/17 16:29 Last Admin: 04/03/17 18:25 Dose: 200 mls/hr Ropivacaine (Naropin 0.2%) Confirm Administered Dose 100 mls @ as directed .ROUTE .STK-MED ONE Stop: 04/03/17 22:37 Last Admin: 04/05/17 20:13 Dose: Not Given Ropivacaine (Naropin 0.2%) Confirm Administered Dose 100 mls @ as directed .ROUTE .STK-MED ONE Stop: 04/04/17 08:37 Last Admin: 04/05/17 19:46 Dose: Not Given Ropivacaine (Naropin 0.2%) Confirm Administered Dose 20 ml .ROUTE .STK-MED ONE Stop: 04/03/17 22:36 Last Admin: 04/05/17 20:13 Dose: Not Given - Exam General: Reports: Alert, Cooperative, No Acute Distress Lungs: Reports: Normal Respiratory Effort GI/Abdominal Exam: Soft, Non-Tender (Female) Exam: Vaginal Bleeding Rectal (Female) Exam: Deferred Back Exam: Reports: Full Range of Motion Extremities: Normal Range of Motion, Non-Tender, No Pedal Edema, Normal Capillary Refill Skin: Reports: Warm, Dry, Intact Wound/Incisions: Reports: Healing Well Neurological: Reports: No New Focal Deficit, Normal Speech, Normal Tone Psy/Mental Status: Reports: Alert, Normal Affect, Normal Mood *Q Meaningful Use (DIS) - VTE *Q VTE Criteria *Q: - Stroke *Q Stroke Criteria *Q: - AMI *Q AMI Criteria *Q:
[2017-04-06] MEDS: Ibuprofen 800 MG Tab PO PRN (10:24)
== END 2017-04-06 10:45 | DRG 560 ==
LOC: MW.OBCHECK 11:01 → MW.OB 11:07 → MW.OBCHECK 20:53 → MW.OB 21:40 → OBSVTOIN 04-04 10:45 → MW.OB 04-04 17:25
PROVIDERS: ADMIT Obstetrics & Gynecology; ATTEND Obstetrics & Gynecology
PROC: 10E0XZZ Delivery of Products of Conception, External Approach (ICD-10-PCS; principal; 2017-04-04)
PROC: 0HQ9XZZ Repair Perineum Skin, External Approach (ICD-10-PCS; 2017-04-04)
PROC: 3E0P7VZ Introduction of Hormone into Female Reproductive, Via Natural or Artificial Opening (ICD-10-PCS; 2017-04-04)
PROC: 3E0P3VZ Introduction of Hormone into Female Reproductive, Percutaneous Approach (ICD-10-PCS; 2017-04-04)
DX: O70.0 First degree perineal laceration during delivery (principal); Z3A.40 40 weeks gestation of pregnancy; Z37.0 Single live birth
CPT/HCPCS: 36415; 59025; 59409; 85014; 85018; 85027; 86850; 86900; 86901; A9270-GY; J0290; J2300; J2590; J7030; J7050; J7120

== ENCOUNTER 2019-07-22 12:37 | Inpatient (IN) | payer BC ==
[2019-07-22] MEDS ORDERED: Lactated Ringers 1,000 ML IV ONE (13:35)
[2019-07-22] MEDS: Terbutaline 1 MG/ML SDV SUBCUT SCH ×2 (14:37→15:51)
--- NOTE | 2019-07-22 15:59 | US ---
Follow-up obstetrical ultrasound: Multiple real-time images were obtained transabdominally and transvaginally. Comparison: Prior obstetrical ultrasound of 05/19/19. Dates: Current ultrasound: ANDREW 09/23/19, gestational age 31 weeks 0 days Earliest ultrasound (05/19/19): ANDREW 09/19/19, gestational age 31 weeks 4 days presentation: Cephalic Placenta: Posterior Amniotic fluid: LI 13.33 cm Measurements: BPD: 7.78 cm - 31 weeks 1 day Head circumference: 28.33 cm - 31 weeks 0 days Abdominal circumference: 26.84 cm - 31 weeks 0 days Femur length: 5.99 cm - 31 weeks 2 days Estimated weight: 1691 g (3 lbs. 12 oz.) Heart rate: 141 BPM Cervix: Internal cervical os is dilated with bulging of the amniotic sac through the internal cervical of. Cervical length is 2.3 cm. Impression: 1. Single intrauterine fetus currently cephalic in presentation. Dates as noted above. 2. Incompetent cervix with bulging of the amniotic sac through the internal os. Cervical length is 2.3 cm. 3. No other complicating process is seen. Diagnostic code #5 This report was dictated in [place] Standard Time
[2019-07-22] MEDS ORDERED: Lactated Ringers 1,000 ML IV SCH ×3 (16:00→23:15)
--- NOTE | 2019-07-22 16:08 | PCM.PN ---
- General Info Date of Service: 07/22/19 Functional Status: Reports: Pain Controlled - Review of Systems General: Reports: No Symptoms HEENT: Reports: No Symptoms Pulmonary: Reports: No Symptoms Cardiovascular: Reports: No Symptoms Gastrointestinal: Reports: No Symptoms Genitourinary: Reports: No Symptoms Musculoskeletal: Reports: No Symptoms Skin: Reports: No Symptoms Neurological: Reports: No Symptoms Psychiatric: Reports: No Symptoms - Patient Data Weight - Most Recent: 143 lb Med Orders - Current: Current Medications Lactated Ringer's (Ringers, Lactated) 1,000 mls @ 125 mls/hr IV ASDIRECTED [facility] Terbutaline Sulfate (Brethine) 0.25 mg SUBCUT Q30M [facility] Last Admin: 07/22/19 15:51 Dose: 1 mg Discontinued Medications Lactated Ringer's (Ringers, Lactated) 1,000 mls @ 999 mls/hr IV .BOLUS ONE Stop: 07/22/19 14:35 Last Admin: 07/22/19 14:36 Dose: 999 mls/hr - Exam General: Alert, Oriented, Cooperative, No Acute Distress Lungs: Normal Respiratory Effort GI/Abdominal Exam: Soft, Non-Tender (Female) Exam: Deferred Back Exam: Normal Inspection, Full Range of Motion Extremities: Normal Inspection, Normal Range of Motion, Non-Tender Skin: Warm, Dry, Intact Neurological: No New Focal Deficit, Normal Gait, Normal Speech, Normal Tone Psy/Mental Status: Alert, Normal Affect, Normal Mood - Problem List & Annotations (1) Supervision of normal IUP (intrauterine ) in multigravida SNOMED Code(s): 201613358, 925475383, 053893042 Code(s): Z34.80 - ENCOUNTER FOR SUPRVSN OF NORMAL , UNSP TRIMESTER Status: Acute Priority: High Current Visit: Yes Qualifiers: Trimester: third trimester Qualified Code(s): Z34.83 - Encounter for supervision of other normal , third trimester (2) contractions SNOMED Code(s): 308878519 Code(s): O47.9 - FALSE LABOR, UNSPECIFIED Status: Acute Priority: High Current Visit: Yes - Problem List Review Problem List Initiated/Reviewed/Updated: Yes - My Orders Last 24 Hours: My Active Orders 07/22/19 13:45 Terbutaline [Brethine] 0.25 mg SUBCUT Q30M - Assessment Assessment:: A: 24 yo at 30 weeks gestation presenting with complaints of regular uterine contractions, BPP 8/8, cervical length noted as 4 cm, inner funneling noted at 2.3 cm, outer os closed, Dr. Lowe in to assess - Plan Plan:: P: Terbutaline 0.25 mg x2 doses, LR to IVF, continue EFM, Dr. Lowe updated
--- NOTE | 2019-07-22 17:04 | PCM.LDHP ---
L&D History of Present Illness - General Date of Service: 07/22/19 Admit Problem/Dx: Patient Status Order with Admit Dx/Problem 07/22/19 13:07 Patient Status [ADT] Routine Admission Diagnosis/Problem Admission Diagnosis/Problem Source of Information: Patient History Limitations: Reports: No Limitations - History of Present Illness Introduction:: 24 yo at 30 weeks gestation presenting with regular uterine contractions q 2-3 min, external os is closed, cervical length: 4 cm, 2.3 cm funneling noted on vaginal ultrasound, BPP 8/8 Location, : Reports: Abdomen Severity: Mild Associated Symptoms: Denies: vaginal fluid - Related Data Allergies/Adverse Reactions: Allergies Allergy/AdvReac Type Severity Reaction Status Date / Time Sulfa (Sulfonamide Allergy Rash Verified 04/01/17 19:53 Antibiotics) Home Medications: Home Meds Vit Calc,Iron,Folic [ Vitamins] 1 tab PO DAILY 04/01/17 [ History] Past Medical History - Past Health History Medical/Surgical History: Denies Medical/Surgical History Social & Family History - Family History Family Medical History: Noncontributory - Caffeine Use Caffeine Use: Reports: None H&P Review of Systems - Review of Systems: Review Of Systems: See Below General: Reports: No Symptoms HEENT: Reports: No Symptoms Pulmonary: Reports: No Symptoms Cardiovascular: Reports: No Symptoms Gastrointestinal: Reports: No Symptoms Genitourinary: Reports: No Symptoms Musculoskeletal: Reports: No Symptoms Skin: Reports: No Symptoms Psychiatric: Reports: No Symptoms Neurological: Reports: No Symptoms Hematologic/Lymphatic: Reports: No Symptoms Immunologic: Reports: No Symptoms L&D Exam - Exam Exam: See Below - Vital Signs Weight: 143 lb - OB Specific Contraction Intensity: Mild to Moderate Movement: Active Heart Tones: Present Heart Rate (FHR) Variability: Moderate (6-25 bmp) - Vergara Score Vergara Score Cervix Position: Midposition Vergara Score Consistency: Soft Vergara Score Effacement: 0-30% Vergara Score Dilation: Closed - Exam General: Alert, Oriented, Cooperative Lungs: Normal Respiratory Effort GI/Abdominal Exam: Soft, Non-Tender Rectal Exam: Deferred Genitourinary: Deferred Back Exam: Normal Inspection, Full Range of Motion Extremities: Normal Inspection, Normal Range of Motion, Non-Tender, No Pedal Edema, Normal Capillary Refill Skin: Warm, Dry, Intact Neurological: Cranial Nerves Intact, Normal Gait, Normal Speech, Normal Tone, Sensation Intact Psychiatric: Alert, Normal Affect, Normal Mood - Patient Data Lab Results Last 24 hrs: Laboratory Results - last 24 hr 07/22/19 Range/Units 15:05 Urine Color YELLOW Urine Appearance HAZY Urine pH 6.5 (5.0-8.0) Ur Specific [place] 1.015 (1.001-1.035) Urine Protein NEGATIVE (NEGATIVE) mg/dL Urine Glucose (UA) NEGATIVE (NEGATIVE) mg/dL Urine Ketones 40 H (NEGATIVE) mg/dL Urine Occult Blood TRACE-INTACT H (NEGATIVE) Urine Nitrite NEGATIVE (NEGATIVE) Urine Bilirubin NEGATIVE (NEGATIVE) Urine Urobilinogen 0.2 (<2.0) EU/dL Ur Leukocyte Esterase NEGATIVE (NEGATIVE) Urine RBC 0-2 (0-2/HPF) Urine WBC 0-2 (0-5/HPF) Ur Epithelial Cells RARE (NONE-FEW) Urine Bacteria RARE (NEGATIVE) - Problem List (1) Supervision of normal IUP (intrauterine ) in multigravida SNOMED Code(s): 656781005, 403457801, 863629477 ICD Code: Z34.80 - ENCOUNTER FOR SUPRVSN OF NORMAL , UNSP TRIMESTER Status: Acute Priority: High Current Visit: Yes Qualifiers: Trimester: third trimester Qualified Code(s): Z34.83 - Encounter for supervision of other normal , third trimester (2) contractions SNOMED Code(s): 358926890 ICD Code: O47.9 - FALSE LABOR, UNSPECIFIED Status: Acute Priority: High Current Visit: Yes Problem List Initiated/Reviewed/Updated: Yes Orders Last 24hrs: Active Orders 24 hr Category Date Time Status Patient Status [ADT] Routine ADT 07/22/19 13:07 Active Non Stress Test [RC] PER UNIT ROUTINE Care 07/22/19 13:07 Active Up ad Alisha [RC] ASDIRECTED Care 07/22/19 13:07 Active Vaginal Exam [RC] Click to Edit Care 07/22/19 13:07 Active Vital Signs [RC] PER UNIT ROUTINE Care 07/22/19 13:07 Active TRICH/PAOLA/CAND BY DNA PROBE [MOLEC] Routine Lab 07/22/19 15:45 Received Lactated Ringers [Ringers, Lactated] 1,000 ml Med 07/22/19 16:00 Active IV ASDIRECTED Terbutaline [Brethine] Med 07/22/19 13:45 Active 0.25 mg SUBCUT Q30M Resuscitation Status Routine Resus Stat 07/22/19 13:07 Ordered Medication Orders Lactated Ringer's (Ringers, Lactated) 1,000 mls @ 125 mls/hr IV ASDIRECTED [facility] [place] Last Admin: 07/22/19 16:10 Dose: 125 mls/hr Terbutaline Sulfate (Brethine) 0.25 mg SUBCUT Q30M [facility] Last Admin: 07/22/19 15:51 Dose: 1 mg Admin: 07/22/19 14:37 Dose: 0.25 mg Assessment/Plan Comment:: P: Terbutaline 0.25 mg x2 doses, LR to IVF, continue EFM, Dr. Lowe updated Admit A: 24 yo at 30 weeks gestation presenting with regular uterine contractions q 2-3 min, external os is closed, cervical length: 4 cm, 2.3 cm funneling noted on vaginal ultrasound, BPP 8/8, 2 doses of terbutaline administered, LR to IVF P: Admit for observation, Dr. Lowe updated
[2019-07-22] MEDS ORDERED: Nalbuphine 10 MG/1 ML Vial IVPUSH PRN ×2 (17:21→18:26)
[2019-07-22] MEDS ORDERED: Magnesium Sulfate/Water 4 GM in Premix Bag 1 BAG IV ONE ×2 (17:48→17:53)
[2019-07-22] MEDS ORDERED: Betamethasone Acetate/Betamethasone Sod Phosphate 30 MG/5 ML MDV IM ONE (17:49)
[2019-07-22] MEDS ORDERED: Calcium Gluconate 10% 1 GM/10 ML SDV IV PRN (17:53)
[2019-07-22] MEDS ORDERED: Magnesium Sulfate/Water 20 GM/500 ML BAG IV SCH (18:00)
[2019-07-22] MEDS ORDERED: Misoprostol 200 MCG Tab PO PRN (18:26)
[2019-07-22] MEDS ORDERED: Tranexamic Acid 1,000 MG in Sodium Chloride 0.9% 100 ML IV PRN ×2 (18:26→23:03)
[2019-07-22] MEDS ORDERED: Water For Irrigation,Sterile 1,000 ML Container IRR PRN (18:26)
[2019-07-22] MEDS ORDERED: Carboprost Tromethamine 250 MCG/1 ML Amp IM PRN (18:26)
[2019-07-22] MEDS ORDERED: Methylergonovine 0.2 MG/1 ML Amp IM PRN ×2 (18:26→23:03)
[2019-07-22] MEDS ORDERED: Butorphanol 1 MG/ML SDV IVPUSH PRN (18:26)
[2019-07-22] MEDS ORDERED: Lidocaine 1% 50 ML MDV INJECT PRN (18:26)
[2019-07-22] MEDS ORDERED: Oxytocin/0.9 % Sodium Chloride 30 UNIT/500 ML BAG IV SCH (18:30)
[2019-07-22] MEDS ORDERED: Ondansetron 4 MG/2 ML SDV ONE (22:08)
[2019-07-22] MEDS ORDERED: Propofol 200 MG/20 ML SDV ONE ×2 (22:09→22:33)
[2019-07-22] MEDS ORDERED: fentaNYL 100 MCG/2 ML SDV ONE (22:11)
[2019-07-22] MEDS ORDERED: ceFAZolin/Dextrose,Iso-Osmotic 2 GM/50 ML Duplex Bag IV ONE (22:30)
[2019-07-22] MEDS ORDERED: Oxytocin 10 Units/1 ML SDV ONE ×2 (22:36→23:21)
[2019-07-22] MEDS ORDERED: Morphine 10 MG/ML Syringe ONE ×2 (22:36→23:07)
[2019-07-22] MEDS ORDERED: Acetaminophen/oxyCODONE 325-5 MG Tab PO PRN ×3 (22:46→23:03)
[2019-07-22] MEDS ORDERED: HYDROmorphone 2 MG/ML Syringe IVPUSH ONE (22:48)
[2019-07-22] MEDS ORDERED: Octyl 2-Cyanoacrylate 1 Tube ONE (22:53)
[2019-07-22] MEDS ORDERED: Oxytocin 10 Units/1 ML SDV IM PRN (23:03)
[2019-07-22] MEDS ORDERED: Misoprostol 200 MCG Tab RECTAL PRN (23:03)
[2019-07-22] MEDS ORDERED: Bisacodyl 10 MG Supp RECTAL PRN (23:03)
[2019-07-22] MEDS ORDERED: Lanolin 100% Cream 7 GM Tube TOP PRN (23:03)
[2019-07-22] MEDS ORDERED: diphenhydrAMINE 50 MG/ML SDV IVPUSH PRN (23:03)
[2019-07-22] MEDS ORDERED: Ondansetron 4 MG/2 ML SDV IVPUSH PRN (23:03)
--- NOTE | 2019-07-22 23:06 | PCM.OPNOTE ---
- General Post-Op/Procedure Note Date of Surgery/Procedure: 07/22/19 Post-Op Diagnosis: Same Anesthesia Technique: General ET Tube Primary Surgeon: Héctor Lowe Quantitative Analyst Marketing: Sanjuanita Iglesias EBL in mLs: 750 Complications: None Condition: Good
[2019-07-22] MEDS ORDERED: HYDROmorphone 2 MG/ML Syringe ONE (23:36)
--- NOTE | 2019-07-23 00:09 | OR ---
SURGEON: Héctor Lowe MD DATE OF PROCEDURE: PREOPERATIVE DIAGNOSIS: Intrauterine , 31 weeks, breech presentation, completely dilated. POSTOPERATIVE DIAGNOSIS: Intrauterine , 31 weeks, breech presentation, completely dilated. OPERATION PERFORMED: Primary low-transverse section. PRIMARY SURGEON: Héctor Lowe MD [employer] REMOVAL SUPERVISOR: Sanjuanita Iglesias. ANESTHESIA: General with endotracheal intubation. ESTIMATED BLOOD LOSS: 750 mL. COMPLICATIONS: None. FINDINGS: Fetus and the score and the weight is not available at the time of delivery. INDICATIONS FOR SURGERY: This patient is 31 weeks. She is followed in our clinic primarily by our nurse registered midwife. She is para 1-0-0-1. Her previous was delivered at 40 weeks. She has no risk factor. She is presenting to Labor and Delivery with contraction and some sort of variable deceleration. The patient had biophysical profile at the time of admission. At that time, she presented vertex with some funneling of the cervix. However, the cervical length was 4 cm, so we continued with hydrating the patient and gave her Brethine hoping that would help contraction to stop. However, she continued to contract and she progressed from 1-2 cm to 7 cm complete with bulging bag of water, and she flipped to a breech presentation. So, I tried to slow her labor and we called the team, which was flown from [place] and when the team had arrived, we proceeded to do a section. PROCEDURE IN DETAIL: The patient was brought to the OR, properly identified. After Esparza catheter and adequate level of general anesthesia, the patient was prepped and draped in sterile fashion as usual. Low transverse Pfannenstiel skin incision was done. The Desiree's fascia and rectus fascia were opened in the direction of the incision. The two recti muscles were and peritoneal cavity was entered. Bladder flap was raised in the usual manner pushing the bladder away from the lower uterine segment. Low transverse uterine incision was done, extended manually with the hand. Fetus was in edita breech presentation, delivered without any problem. The fetus cried immediately and handed to the resuscitating team to resuscitate the fetus, and the placenta delivered spontaneous, complete, and intact. The score and the weight is not available at the time of the dictation. The lower uterine segment was repaired with 2-0 Vicryl continuous interlocking in 2 layers. Reperitonealization done with 3-0 Vicryl continuous. Peritoneal cavity evacuated completely from all blood and blood clot and closed with 3-0 Vicryl continuous, and the rectus fascia was closed with #1 PDS double strand continuous, Desiree's fascia with 3-0 Vicryl continuous, and skin closed with 3-0 on a Oliver needle in a subcuticular fashion and Dermabond. Instrument and sponge count was correct. The patient tolerated the procedure well, went to recovery room in stable general condition. OMA / MARCO ANTONIO /[id number]
--- NOTE | 2019-07-23 00:21 | PCM.PREANE ---
Preanesthetic Assessment - Procedure Proposed Procedure: Emergency . 31 week, breech, complete. - Anesthesia/Transfusion/Family Hx Anesthesia History: Prior Anesthesia Without Reaction Family History of Anesthesia Reaction: No Transfusion History: No Prior Transfusion(s) Intubation History: Unknown - Review of Systems General: No Symptoms Pulmonary: No Symptoms Cardiovascular: No Symptoms Gastrointestinal: No Symptoms Neurological: No Symptoms Other: Reports: Anxiety - Physical Assessment NPO Status Date: 07/22/19 NPO Status Time: 16:00 (Clear liquids) Height: 1.57 m Weight: 64.864 kg ASA Class: 2E Mental Status: Alert & Oriented x3 Dentition: Reports: Normal Dentition Thyro-Mental Finger Breadths: 3 Mouth Opening Finger Breadths: 3 ROM/Head Extension: Full Lungs: Clear to Auscultation Cardiovascular: Regular Rate - Lab Values: Laboratory Last Values WBC 12.13 K/uL (4.0-11.0) H 07/22/19 18:43 RBC 4.04 M/uL (4.30-5.90) L 07/22/19 18:43 Hgb 11.7 g/dL (12.0-16.0) L 07/22/19 18:43 Hct 34.0 % (36.0-46.0) L 07/22/19 18:43 MCV 84.2 fL (80.0-98.0) 07/22/19 18:43 MCH 29.0 pg (27.0-32.0) 07/22/19 18:43 MCHC 34.4 g/dL (31.0-37.0) 07/22/19 18:43 RDW Std Deviation 39.3 fl (28.0-62.0) 07/22/19 18:43 RDW Coeff of Raz 13 % (11.0-15.0) 07/22/19 18:43 Plt Count 162 K/uL (150-400) 07/22/19 18:43 MPV 10.80 fL (7.40-12.00) 07/22/19 18:43 Nucleated RBC % 0.0 /100WBC 07/22/19 18:43 Nucleated RBCs # 0 K/uL 07/22/19 18:43 Urine Color YELLOW 07/22/19 15:05 Urine Appearance HAZY 07/22/19 15:05 Urine pH 6.5 (5.0-8.0) 07/22/19 15:05 Ur Specific [place] 1.015 (1.001-1.035) 07/22/19 15:05 Urine Protein NEGATIVE mg/dL (NEGATIVE) 07/22/19 15:05 Urine Glucose (UA) NEGATIVE mg/dL (NEGATIVE) 07/22/19 15:05 Urine Ketones 40 mg/dL (NEGATIVE) H 07/22/19 15:05 Urine Occult Blood TRACE-INTACT (NEGATIVE) H 07/22/19 15:05 Urine Nitrite NEGATIVE (NEGATIVE) 07/22/19 15:05 Urine Bilirubin NEGATIVE (NEGATIVE) 07/22/19 15:05 Urine Urobilinogen 0.2 EU/dL (<2.0) 07/22/19 15:05 Ur Leukocyte Esterase NEGATIVE (NEGATIVE) 07/22/19 15:05 Urine RBC 0-2 (0-2/HPF) 07/22/19 15:05 Urine WBC 0-2 (0-5/HPF) 07/22/19 15:05 Ur Epithelial Cells RARE (NONE-FEW) 07/22/19 15:05 Urine Bacteria RARE (NEGATIVE) 07/22/19 15:05 Estephania species DNA NEGATIVE (NEGATIVE) 07/22/19 15:45 Gardnerella DNA Probe POSITIVE (NEGATIVE) H 07/22/19 15:45 Trichomonas DNA Probe NEGATIVE (NEGATIVE) 07/22/19 15:45 Blood Type O POSITIVE 07/22/19 18:43 Antibody Screen NEGATIVE 07/22/19 18:43 - Allergies Allergies/Adverse Reactions: Allergies Allergy/AdvReac Type Severity Reaction Status Date / Time Sulfa (Sulfonamide Allergy Rash Verified 04/01/17 19:53 Antibiotics) - Blood Blood Available: No - Anesthesia Plan Pre-Op Medication Ordered: None - Acknowledgements Anesthesia Type Planned: General Anesthesia Pt an Appropriate Candidate for the Planned Anesthesia: Yes Alternatives and Risks of Anesthesia Discussed w Pt/Guardian: Yes Pt/Guardian Understands and Agrees with Anesthesia Plan: Yes Additional Comments: GAET requested/surgeon. Explained, ? answered, permit signed. PreAnesthesia Questionnaire - Past Health History Medical/Surgical History: Denies Medical/Surgical History QM NURSE History: Reports: - SUBSTANCE USE Smoking Status *Q: Never Smoker Second Hand Smoke Exposure: No Recreational Drug Use History: No - HOME MEDS Home Medications: Home Meds Vit Calc,Iron,Folic [ Vitamins] 1 tab PO DAILY 04/01/17 [ History] - CURRENT (IN HOUSE) MEDS Current Meds: Current Medications Bisacodyl (Dulcolax) 10 mg RECTAL ONETIME PRN PRN Reason: Constipation Butorphanol Tartrate (Stadol) 1 mg IVPUSH Q1H PRN PRN Reason: Pain Carboprost Tromethamine (Hemabate Ds) 250 mcg IM ASDIRECTED PRN PRN Reason: Post Hemorrhage Diphenhydramine HCl (Benadryl) 25 mg IVPUSH Q6H PRN PRN Reason: Itching or Nausea Docusate Sodium (Colace) 100 mg PO BID [facility] Emollient Ointment (Lansinoh Hpa) 0 gm TOP ASDIRECTED PRN PRN Reason: Sore Nipples Lactated Ringer's (Ringers, Lactated) 1,000 mls @ 125 mls/hr IV ASDIRECTED [facility] Last Admin: 07/22/19 16:10 Dose: 125 mls/hr Tranexamic Acid 1,000 mg/ (Sodium Chloride) 110 mls @ 660 mls/hr IV ONETIME PRN PRN Reason: Bleeding Lactated Ringer's (Ringers, Lactated) 1,000 mls @ 150 mls/hr IV ASDIRECTED [facility] Oxytocin/Sodium Chloride (Oxytocin 30 Unit/500 Ml-Ns) 30 unit in 500 mls @ 999 mls/hr IV TITRATE [facility] Tranexamic Acid 1,000 mg/ (Sodium Chloride) 110 mls @ 660 mls/hr IV ONETIME PRN PRN Reason: Bleeding Lactated Ringer's (Ringers, Lactated) 1,000 mls @ 125 mls/hr IV ASDIRECTED [facility] Ibuprofen (Motrin) 800 mg PO Q8H PRN PRN Reason: mild pain or fever Ketorolac Tromethamine (Toradol) 30 mg IVPUSH Q6H [facility] Stop: 07/23/19 23:16 Lidocaine HCl (Xylocaine 1%) 50 ml INJECT ONETIME PRN PRN Reason: Laceration repair Methylergonovine Maleate (Methergine) 0.2 mg IM ASDIRECTED PRN PRN Reason: Post Hemorrhage Methylergonovine Maleate (Methergine) 0.2 mg IM ONETIME PRN PRN Reason: Excessive Vaginal Bleeding Misoprostol (Cytotec) 200 mcg PO ONETIME PRN PRN Reason: Post Hemorrhage Misoprostol (Cytotec) 1,000 mcg RECTAL ONETIME PRN PRN Reason: excessive bleeding Nalbuphine HCl (Nubain) 5 mg IVPUSH Q3H PRN PRN Reason: Pain Nalbuphine HCl (Nubain) 10 mg IVPUSH Q1H PRN PRN Reason: Pain (severe 7-10) Ondansetron HCl (Zofran) 4 mg IVPUSH Q4H PRN PRN Reason: Nausea/Vomiting Oxycodone/Acetaminophen (Percocet 325-5 Mg) 1 tab PO ONETIME PRN PRN Reason: Pain (moderate 4-6) Oxycodone/Acetaminophen (Percocet 325-5 Mg) 1 tab PO Q4H PRN PRN Reason: Pain (moderate 4-6) Oxycodone/Acetaminophen (Percocet 325-5 Mg) 2 tab PO Q4H PRN PRN Reason: Pain (moderate 4-6) Oxytocin (Pitocin) 10 unit IM ASDIRECTED PRN PRN Reason: Excessive Vaginal Bleeding Sterile Water (Sterile Water For Irrigation) 1,000 ml IRR ASDIRECTED PRN PRN Reason: delivery Terbutaline Sulfate (Brethine) 0.25 mg SUBCUT Q30M [facility] Last Admin: 07/22/19 15:51 Dose: 1 mg Discontinued Medications Betamethasone Acet/Betameth SodPhos (Celestone Soluspan 6 Mg/Ml) 12 mg IM ONETIME ONE Stop: 07/22/19 17:50 Last Admin: 07/22/19 17:59 Dose: 2 ml Calcium Gluconate (Calcium Gluconate) 1 gm IV ASDIRECTED PRN PRN Reason: respiratory distress Fentanyl (Sublimaze) Confirm Administered Dose 100 mcg .ROUTE .STK-MED ONE Stop: 07/22/19 22:12 Hydromorphone HCl (Dilaudid) 2 mg IVPUSH ONETIME ONE Stop: 07/22/19 22:49 Hydromorphone HCl (Dilaudid) Confirm Administered Dose 2 mg .ROUTE .STK-MED ONE Stop: 07/22/19 23:37 Lactated Ringer's (Ringers, Lactated) 1,000 mls @ 999 mls/hr IV .BOLUS ONE Stop: 07/22/19 14:35 Last Admin: 07/22/19 14:36 Dose: 999 mls/hr Magnesium Sulfate 4 gm/ Premix 100 mls @ 50 mls/hr IV ONETIME ONE Stop: 07/22/19 19:47 Magnesium Sulfate 4 gm/ Premix 100 mls @ 300 mls/hr IV BOLUS ONE Stop: 07/22/19 18:12 Magnesium Sulfate (Magnesium Sulfate In Water Premix) 20 gm in 500 mls @ 50 mls /hr IV ASDIRECTED [facility]; Protocol Acetaminophen ([facility]) Confirm Administered Dose 100 mls @ as directed .ROUTE .STK-MED ONE Stop: 07/22/19 22:54 Morphine Sulfate (Morphine) Confirm Administered Dose 10 mg .ROUTE .STK-MED ONE Stop: 07/22/19 22:37 Morphine Sulfate (Morphine) Confirm Administered Dose 10 mg .ROUTE .STK-MED ONE Stop: 07/22/19 23:08 Octyl Cyanoacrylate (Dermabond Advance) Confirm Administered Dose 1 applic .ROUTE .STK-MED ONE Stop: 07/22/19 22:54 Ondansetron HCl (Zofran) Confirm Administered Dose 4 mg .ROUTE .STK-MED ONE Stop: 07/22/19 22:09 Oxytocin (Pitocin) Confirm Administered Dose 20 unit .ROUTE .STK-MED ONE Stop: 07/22/19 22:37 Oxytocin (Pitocin) Confirm Administered Dose 20 unit .ROUTE .STK-MED ONE Stop: 07/22/19 23:22 Propofol (Diprivan 20 Ml) Confirm Administered Dose 200 mg .ROUTE .STK-MED ONE Stop: 07/22/19 22:10 Propofol (Diprivan 20 Ml) Confirm Administered Dose 200 mg .ROUTE .STK-MED ONE Stop: 07/22/19 22:34
--- NOTE | 2019-07-23 00:22 | PCM.POSTAN ---
POST ANESTHESIA ASSESSMENT - MENTAL STATUS Mental Status: Somnolent - RESPIRATORY Respiratory Status: Respiratory Rate WNL - CARDIOVASCULAR CV Status: Pulse Rate WNL - GASTROINTESTINAL GI Status: No Symptoms - PAIN Pain Score: 4 (RX'd) - POST OP HYDRATION Hydration Status: Adequate & Stable (Doing ok. Some pain. Rx'd. stable for transfer to room.)
[2019-07-23] MEDS ORDERED: Morphine 4 MG/ML Syringe IVPUSH PRN (01:00)
[2019-07-23] MEDS ORDERED: Morphine 10 MG/ML Syringe IVPUSH PRN (01:02)
[2019-07-23] MEDS: Ketorolac 30 MG/ML SDV IVPUSH SCH ×4 (01:11→20:49)
[2019-07-23] MEDS: Docusate Sodium 100 MG Cap PO SCH ×2 (08:41→20:50)
--- NOTE | 2019-07-23 10:42 | PCM.PNPP ---
- General Info Date of Service: 07/23/19 Admission Dx/Problem (Free Text): Patient Status Order with Admit Dx/Problem 07/22/19 13:07 Patient Status [ADT] Routine Admission Diagnosis/Problem Admission Diagnosis/Problem Functional Status: Reports: Pain Controlled - Review of Systems General: Reports: No Symptoms HEENT: Reports: No Symptoms Pulmonary: Reports: No Symptoms Cardiovascular: Reports: No Symptoms Gastrointestinal: Reports: No Symptoms Genitourinary: Reports: No Symptoms Musculoskeletal: Reports: No Symptoms Skin: Reports: No Symptoms Neurological: Reports: No Symptoms Psychiatric: Reports: No Symptoms - General Info Date of Service: 07/23/19 - Patient Data Vital Signs - Most Recent: Last Vital Signs Temp 97.9 F 07/23/19 08:36 Pulse 60 07/23/19 08:36 Resp 14 07/23/19 08:36 BP 106/63 07/23/19 08:36 Pulse Ox 98 07/23/19 08:36 Weight - Most Recent: 143 lb 0.009 oz I&O - Last 24 Hours: Intake & Output 07/22/19 07/23/19 07/23/19 22:59 06:59 14:59 Output Total 800 Balance -800 Lab Results - Last 24 Hours: Laboratory Results - last 24 hr 07/22/19 07/22/19 07/22/19 Range/Units 15:05 15:45 18:43 WBC 12.13 H (4.0-11.0) K/uL RBC 4.04 L (4.30-5.90) M/uL Hgb 11.7 L (12.0-16.0) g/dL Hct 34.0 L (36.0-46.0) % MCV 84.2 (80.0-98.0) fL MCH 29.0 (27.0-32.0) pg MCHC 34.4 (31.0-37.0) g/dL RDW Std Deviation 39.3 (28.0-62.0) fl RDW Coeff of Raz 13 (11.0-15.0) % Plt Count 162 (150-400) K/uL MPV 10.80 (7.40-12.00) fL Nucleated RBC % 0.0 /100WBC Nucleated RBCs # 0 K/uL Urine Color YELLOW Urine Appearance HAZY Urine pH 6.5 (5.0-8.0) Ur Specific [place] 1.015 (1.001-1.035) Urine Protein NEGATIVE (NEGATIVE) mg/dL Urine Glucose (UA) NEGATIVE (NEGATIVE) mg/dL Urine Ketones 40 H (NEGATIVE) mg/dL Urine Occult Blood TRACE-INTACT H (NEGATIVE) Urine Nitrite NEGATIVE (NEGATIVE) Urine Bilirubin NEGATIVE (NEGATIVE) Urine Urobilinogen 0.2 (<2.0) EU/dL Ur Leukocyte Esterase NEGATIVE (NEGATIVE) Urine RBC 0-2 (0-2/HPF) Urine WBC 0-2 (0-5/HPF) Ur Epithelial Cells RARE (NONE-FEW) Urine Bacteria RARE (NEGATIVE) Estephania species DNA NEGATIVE (NEGATIVE) Gardnerella DNA Probe POSITIVE H (NEGATIVE) Trichomonas DNA Probe NEGATIVE (NEGATIVE) Blood Type Antibody Screen 07/22/19 07/23/19 Range/Units 18:43 05:55 WBC (4.0-11.0) K/uL RBC (4.30-5.90) M/uL Hgb 10.8 L (12.0-16.0) g/dL Hct 31.4 L (36.0-46.0) % MCV (80.0-98.0) fL MCH (27.0-32.0) pg MCHC (31.0-37.0) g/dL RDW Std Deviation (28.0-62.0) fl RDW Coeff of Raz (11.0-15.0) % Plt Count (150-400) K/uL MPV (7.40-12.00) fL Nucleated RBC % /100WBC Nucleated RBCs # K/uL Urine Color Urine Appearance Urine pH (5.0-8.0) Ur Specific [place] (1.001-1.035) Urine Protein (NEGATIVE) mg/dL Urine Glucose (UA) (NEGATIVE) mg/dL Urine Ketones (NEGATIVE) mg/dL Urine Occult Blood (NEGATIVE) Urine Nitrite (NEGATIVE) Urine Bilirubin (NEGATIVE) Urine Urobilinogen (<2.0) EU/dL Ur Leukocyte Esterase (NEGATIVE) Urine RBC (0-2/HPF) Urine WBC (0-5/HPF) Ur Epithelial Cells (NONE-FEW) Urine Bacteria (NEGATIVE) Estephania species DNA (NEGATIVE) Gardnerella DNA Probe (NEGATIVE) Trichomonas DNA Probe (NEGATIVE) Blood Type O POSITIVE Antibody Screen NEGATIVE Med Orders - Current: Current Medications Bisacodyl (Dulcolax) 10 mg RECTAL ONETIME PRN PRN Reason: Constipation Diphenhydramine HCl (Benadryl) 25 mg IVPUSH Q6H PRN PRN Reason: Itching or Nausea Docusate Sodium (Colace) 100 mg PO BID [facility] Last Admin: 07/23/19 08:41 Dose: 100 mg Emollient Ointment (Lansinoh Hpa) 0 gm TOP ASDIRECTED PRN PRN Reason: Sore Nipples Lactated Ringer's (Ringers, Lactated) 1,000 mls @ 125 mls/hr IV ASDIRECTED [facility] Last Admin: 07/22/19 16:10 Dose: 125 mls/hr Tranexamic Acid 1,000 mg/ (Sodium Chloride) 110 mls @ 660 mls/hr IV ONETIME PRN PRN Reason: Bleeding Lactated Ringer's (Ringers, Lactated) 1,000 mls @ 125 mls/hr IV ASDIRECTED [facility] Last Admin: 07/23/19 05:24 Dose: 125 mls/hr Ibuprofen (Motrin) 800 mg PO Q8H PRN PRN Reason: mild pain or fever Ketorolac Tromethamine (Toradol) 30 mg IVPUSH Q6H [facility] Stop: 07/23/19 23:16 Last Admin: 07/23/19 08:40 Dose: 30 mg Methylergonovine Maleate (Methergine) 0.2 mg IM ONETIME PRN PRN Reason: Excessive Vaginal Bleeding Misoprostol (Cytotec) 1,000 mcg RECTAL ONETIME PRN PRN Reason: excessive bleeding Morphine Sulfate (Morphine) 6 mg IVPUSH Q4H PRN PRN Reason: Pain Last Admin: 07/23/19 01:17 Dose: 6 mg Nalbuphine HCl (Nubain) 5 mg IVPUSH Q3H PRN PRN Reason: Pain Ondansetron HCl (Zofran) 4 mg IVPUSH Q4H PRN PRN Reason: Nausea/Vomiting Oxycodone/Acetaminophen (Percocet 325-5 Mg) 1 tab PO ONETIME PRN PRN Reason: Pain (moderate 4-6) Oxycodone/Acetaminophen (Percocet 325-5 Mg) 1 tab PO Q4H PRN PRN Reason: Pain (moderate 4-6) Oxycodone/Acetaminophen (Percocet 325-5 Mg) 2 tab PO Q4H PRN PRN Reason: Pain (moderate 4-6) Oxytocin (Pitocin) 10 unit IM ASDIRECTED PRN PRN Reason: Excessive Vaginal Bleeding Discontinued Medications Betamethasone Acet/Betameth SodPhos (Celestone Soluspan 6 Mg/Ml) 12 mg IM ONETIME ONE Stop: 07/22/19 17:50 Last Admin: 07/22/19 17:59 Dose: 2 ml Butorphanol Tartrate (Stadol) 1 mg IVPUSH Q1H PRN PRN Reason: Pain Calcium Gluconate (Calcium Gluconate) 1 gm IV ASDIRECTED PRN PRN Reason: respiratory distress Carboprost Tromethamine (Hemabate Ds) 250 mcg IM ASDIRECTED PRN PRN Reason: Post Hemorrhage Fentanyl (Sublimaze) Confirm Administered Dose 100 mcg .ROUTE .STK-MED ONE Stop: 07/22/19 22:12 Hydromorphone HCl (Dilaudid) 2 mg IVPUSH ONETIME ONE Stop: 07/22/19 22:49 Hydromorphone HCl (Dilaudid) Confirm Administered Dose 2 mg .ROUTE .STK-MED ONE Stop: 07/22/19 23:37 Lactated Ringer's (Ringers, Lactated) 1,000 mls @ 999 mls/hr IV .BOLUS ONE Stop: 07/22/19 14:35 Last Admin: 07/22/19 14:36 Dose: 999 mls/hr Magnesium Sulfate 4 gm/ Premix 100 mls @ 50 mls/hr IV ONETIME ONE Stop: 07/22/19 19:47 Magnesium Sulfate 4 gm/ Premix 100 mls @ 300 mls/hr IV BOLUS ONE Stop: 07/22/19 18:12 Magnesium Sulfate (Magnesium Sulfate In Water Premix) 20 gm in 500 mls @ 50 mls /hr IV ASDIRECTED [facility]; Protocol Tranexamic Acid 1,000 mg/ (Sodium Chloride) 110 mls @ 660 mls/hr IV ONETIME PRN PRN Reason: Bleeding Lactated Ringer's (Ringers, Lactated) 1,000 mls @ 150 mls/hr IV ASDIRECTED [facility] Oxytocin/Sodium Chloride (Oxytocin 30 Unit/500 Ml-Ns) 30 unit in 500 mls @ 999 mls/hr IV TITRATE [facility] Acetaminophen (Ofirmev) Confirm Administered Dose 100 mls @ as directed .ROUTE .STK-MED ONE Stop: 07/22/19 22:54 Lidocaine HCl (Xylocaine 1%) 50 ml INJECT ONETIME PRN PRN Reason: Laceration repair Methylergonovine Maleate (Methergine) 0.2 mg IM ASDIRECTED PRN PRN Reason: Post Hemorrhage Misoprostol (Cytotec) 200 mcg PO ONETIME PRN PRN Reason: Post Hemorrhage Morphine Sulfate (Morphine) Confirm Administered Dose 10 mg .ROUTE .STK-MED ONE Stop: 07/22/19 22:37 Morphine Sulfate (Morphine) Confirm Administered Dose 10 mg .ROUTE .STK-MED ONE Stop: 07/22/19 23:08 Morphine Sulfate (Morphine) 4 mg IVPUSH Q4HR PRN PRN Reason: Pain Nalbuphine HCl (Nubain) 10 mg IVPUSH Q1H PRN PRN Reason: Pain (severe 7-10) Octyl Cyanoacrylate (Dermabond Advance) Confirm Administered Dose 1 applic .ROUTE .STK-MED ONE Stop: 07/22/19 22:54 Last Admin: 07/22/19 23:30 Dose: 1 applic Ondansetron HCl (Zofran) Confirm Administered Dose 4 mg .ROUTE .STK-MED ONE Stop: 07/22/19 22:09 Oxytocin (Pitocin) Confirm Administered Dose 20 unit .ROUTE .STK-MED ONE Stop: 07/22/19 22:37 Oxytocin (Pitocin) Confirm Administered Dose 20 unit .ROUTE .STK-MED ONE Stop: 07/22/19 23:22 Propofol (Diprivan 20 Ml) Confirm Administered Dose 200 mg .ROUTE .STK-MED ONE Stop: 07/22/19 22:10 Propofol (Diprivan 20 Ml) Confirm Administered Dose 200 mg .ROUTE .STK-MED ONE Stop: 07/22/19 22:34 Sterile Water (Sterile Water For Irrigation) 1,000 ml IRR ASDIRECTED PRN PRN Reason: delivery Terbutaline Sulfate (Brethine) 0.25 mg SUBCUT Q30M [facility] Last Admin: 07/22/19 15:51 Dose: 1 mg - Infant Interaction Disposition, : Baby transferred to [facility] after delivery Support Person: - Recovery Exam Fundal Tone: Firm Fundal Level: 1 Fingerbreadths Below Umbilicus Fundal Placement: Midline Lochia Amount: Moderate Lochia Color: Rubra/Red Perineum Description: Intact, Minimal Bruising/Swelling Episiotomy/Laceration: None Bladder Status: Indwelling Catheter in Place Urinary Elimination: Indwelling Catheter - Exam General: Alert, Oriented, Cooperative, Mild Distress Lungs: Clear to Auscultation, Normal Respiratory Effort Cardiovascular: Regular Rate, Regular Rhythm GI/Abdominal Exam: Soft, Non-Tender Extremities: Normal Inspection, Non-Tender, Normal Capillary Refill Skin: Warm, Dry, Intact Wound/Incisions: Dressing Dry and Intact Neurological: No New Focal Deficit, Normal Speech, Normal Tone Psy/Mental Status: Alert, Anxious - Problem List & Annotations (1) Supervision of normal IUP (intrauterine ) in multigravida SNOMED Code(s): 813235854, 527636288, 339949790 Code(s): Z34.80 - ENCOUNTER FOR SUPRVSN OF NORMAL , UNSP TRIMESTER Status: Acute Priority: High Current Visit: Yes Qualifiers: Trimester: third trimester Qualified Code(s): Z34.83 - Encounter for supervision of other normal , third trimester (2) contractions SNOMED Code(s): 474655237 Code(s): O47.9 - FALSE LABOR, UNSPECIFIED Status: Acute Priority: High Current Visit: Yes - Problem List Review Problem List Initiated/Reviewed/Updated: Yes - My Orders Last 24 Hours: My Active Orders 07/22/19 17:21 Nalbuphine [Nubain] 5 mg IVPUSH Q3H PRN 07/22/19 Dinner Regular Diet [DIET] - Assessment Assessment:: A: 24 yo at 30 weeks gestation presenting with complaints of regular uterine contractions, BPP 8/8, cervical length noted as 4 cm, inner funneling noted at 2.3 cm, outer os closed, Dr. Lowe in to assess - Plan Plan:: P: Terbutaline 0.25 mg x2 doses, LR to IVF, continue EFM, Dr. Lowe updated Admit A: 24 yo at 30 weeks gestation presenting with regular uterine contractions q 2-3 min, external os is closed, cervical length: 4 cm, 2.3 cm funneling noted on vaginal ultrasound, BPP 8/8, 2 doses of terbutaline administered, LR to IVF P: Admit for observation, Dr. Lowe updated Day 1 A: In bed with indwelling catheter in place, reports pain of 3/5, appears slightly anxious and tearful, review of systems otherwise negative. Dressing dry and intact, uterus firm. P: Routine /postcesarean plan of care. Dr. Lowe updated.
--- NOTE | 2019-07-23 11:59 | PCM48HPAN ---
Post Anesthesia Note - EVALUATION WITHIN 48HRS OF ANESTHETIC Vital Signs in Normal Range: Yes Patient Participated in Evaluation: Yes Respiratory Function Stable: Yes Airway Patent: Yes Cardiovascular Function Stable: Yes Hydration Status Stable: Yes Pain Control Satisfactory: Yes (Patient still having some soreness. Using Rx.) Nausea and Vomiting Control Satisfactory: Yes Mental Status Recovered: Yes Vital Signs: Last Vital Signs Temp 36.6 C 07/23/19 08:36 Pulse 60 07/23/19 08:36 Resp 14 07/23/19 08:36 BP 106/63 07/23/19 08:36 Pulse Ox 98 07/23/19 08:36 - COMMENTS/OBSERVATIONS Free Text/Narrative:: Doing OK. Need to keep addressing analgesia issues. Stable
[2019-07-24] MEDS: Ketorolac 30 MG/ML SDV IVPUSH SCH ×2 (03:00→03:11)
[2019-07-24] MEDS ORDERED: Ketorolac 30 MG/ML SDV IVPUSH ONE (03:09)
[2019-07-24] MEDS ORDERED: Ibuprofen 800 MG Tab PO PRN (05:16)
--- NOTE | 2019-07-24 08:12 | PCM.DCSUM1 ---
Discharge Summary - Hospital Course Free Text/Narrative:: Discharge home. Follow up 1 week for incision check. Follow up in 6 weeks for exam. Diagnosis: Stroke: No Modified Jermain Scale: No Symptoms at All Modified Tivoli Scale Score: 0 - Discharge Data Discharge Date: 07/24/19 Discharge Disposition: Home, Self-Care 01 Condition: Good - Referral to Home Health Primary Care Physician: Марина Nash CNM - Discharge Diagnosis/Problem(s) (1) Supervision of normal IUP (intrauterine ) in multigravida SNOMED Code(s): 492116047, 676433046, 782299797 ICD Code: Z34.80 - ENCOUNTER FOR SUPRVSN OF NORMAL , UNSP TRIMESTER Status: Acute Priority: High Current Visit: Yes Qualifiers: Trimester: third trimester Qualified Code(s): Z34.83 - Encounter for supervision of other normal , third trimester (2) contractions SNOMED Code(s): 994004004 ICD Code: O47.9 - FALSE LABOR, UNSPECIFIED Status: Acute Priority: High Current Visit: Yes - Patient Instructions Diet: Regular Diet as Tolerated, Drink 8-10+ Glasses/Day Activity: As Tolerated, No Strenuous Activities, Rest and Relax Today Driving: Do Not Drive Showering/Bathing: May Shower Wound/Incision Care: Keep Operative Site/Wound Site Clean and Dry Notify Provider of: Fever, Increased Pain, Swelling and Redness, Drainage, Nausea and/or Vomiting - Discharge Plan *PRESCRIPTION DRUG MONITORING PROGRAM REVIEWED*: Not Applicable *COPY OF PRESCRIPTION DRUG MONITORING REPORT IN PATIENT MANDI: Not Applicable Prescriptions/Med Rec: Acetaminophen/oxyCODONE [Percocet 325-5 MG] 1 - 2 tab PO Q4H PRN #30 tablet PRN Reason: Pain (Moderate 4-6) Ibuprofen [Motrin] 800 mg PO Q6H PRN #90 tablet PRN Reason: Pain (Moderate 4-6) Home Medications: Home Meds Vit Calc,Iron,Folic [ Vitamins] 1 tab PO DAILY 04/01/17 [ History] Acetaminophen/oxyCODONE [Percocet 325-5 MG] 1 - 2 tab PO Q4H PRN #30 tablet [Rx] Ibuprofen [Motrin] 800 mg PO Q6H PRN #90 tablet 07/24/19 [Rx] Oxygen Therapy Mode: Room Air Patient Handouts: Delivery, Care After - Discharge Summary/Plan Comment DC Time >30 min.: Yes - General Info Date of Service: 07/24/19 Admission Dx/Problem (Free Text: Patient Status Order with Admit Dx/Problem 07/22/19 13:07 Patient Status [ADT] Routine Admission Diagnosis/Problem Admission Diagnosis/Problem Functional Status: Reports: Pain Controlled - Review of Systems General: Reports: No Symptoms HEENT: Reports: No Symptoms Pulmonary: Reports: No Symptoms Cardiovascular: Reports: No Symptoms Gastrointestinal: Reports: No Symptoms Genitourinary: Reports: No Symptoms Musculoskeletal: Reports: No Symptoms Skin: Reports: No Symptoms Neurological: Reports: No Symptoms Psychiatric: Reports: No Symptoms - Patient Data Vitals - Most Recent: Last Vital Signs Temp 97.2 F 07/24/19 03:45 Pulse 76 07/24/19 03:45 Resp 14 07/24/19 03:45 BP 113/71 07/24/19 03:45 Pulse Ox 98 07/24/19 03:45 Weight - Most Recent: 143 lb 0.009 oz I&O - Last 24 hours: Intake & Output 07/23/19 07/24/19 07/24/19 22:59 06:59 14:59 Intake Total 750 Output Total 700 850 Balance -700 -100 Med Orders - Current: Current Medications Bisacodyl (Dulcolax) 10 mg RECTAL ONETIME PRN PRN Reason: Constipation Diphenhydramine HCl (Benadryl) 25 mg IVPUSH Q6H PRN PRN Reason: Itching or Nausea Docusate Sodium (Colace) 100 mg PO BID [facility] Last Admin: 07/23/19 20:50 Dose: 100 mg Emollient Ointment (Lansinoh Hpa) 0 gm TOP ASDIRECTED PRN PRN Reason: Sore Nipples Lactated Ringer's (Ringers, Lactated) 1,000 mls @ 125 mls/hr IV ASDIRECTED [facility] Last Admin: 07/22/19 16:10 Dose: 125 mls/hr Tranexamic Acid 1,000 mg/ (Sodium Chloride) 110 mls @ 660 mls/hr IV ONETIME PRN PRN Reason: Bleeding Lactated Ringer's (Ringers, Lactated) 1,000 mls @ 125 mls/hr IV ASDIRECTED [facility] Last Admin: 07/23/19 05:24 Dose: 125 mls/hr Ibuprofen (Motrin) 800 mg PO Q8H PRN PRN Reason: mild pain or fever Methylergonovine Maleate (Methergine) 0.2 mg IM ONETIME PRN PRN Reason: Excessive Vaginal Bleeding Misoprostol (Cytotec) 1,000 mcg RECTAL ONETIME PRN PRN Reason: excessive bleeding Morphine Sulfate (Morphine) 6 mg IVPUSH Q4H PRN PRN Reason: Pain Last Admin: 07/23/19 01:17 Dose: 6 mg Nalbuphine HCl (Nubain) 5 mg IVPUSH Q3H PRN PRN Reason: Pain Ondansetron HCl (Zofran) 4 mg IVPUSH Q4H PRN PRN Reason: Nausea/Vomiting Oxycodone/Acetaminophen (Percocet 325-5 Mg) 1 tab PO ONETIME PRN PRN Reason: Pain (moderate 4-6) Oxycodone/Acetaminophen (Percocet 325-5 Mg) 1 tab PO Q4H PRN PRN Reason: Pain (moderate 4-6) Oxycodone/Acetaminophen (Percocet 325-5 Mg) 2 tab PO Q4H PRN PRN Reason: Pain (moderate 4-6) Oxytocin (Pitocin) 10 unit IM ASDIRECTED PRN PRN Reason: Excessive Vaginal Bleeding Discontinued Medications Betamethasone Acet/Betameth SodPhos (Celestone Soluspan 6 Mg/Ml) 12 mg IM ONETIME ONE Stop: 07/22/19 17:50 Last Admin: 07/22/19 17:59 Dose: 2 ml Butorphanol Tartrate (Stadol) 1 mg IVPUSH Q1H PRN PRN Reason: Pain Calcium Gluconate (Calcium Gluconate) 1 gm IV ASDIRECTED PRN PRN Reason: respiratory distress Carboprost Tromethamine (Hemabate Ds) 250 mcg IM ASDIRECTED PRN PRN Reason: Post Hemorrhage Cefazolin Sodium/Dextrose (Ancef) 2 gm IV .STK-MED ONE Stop: 07/22/19 22:31 Fentanyl (Sublimaze) Confirm Administered Dose 100 mcg .ROUTE .STK-MED ONE Stop: 07/22/19 22:12 Hydromorphone HCl (Dilaudid) 2 mg IVPUSH ONETIME ONE Stop: 07/22/19 22:49 Hydromorphone HCl (Dilaudid) Confirm Administered Dose 2 mg .ROUTE .STK-MED ONE Stop: 07/22/19 23:37 Lactated Ringer's (Ringers, Lactated) 1,000 mls @ 999 mls/hr IV .BOLUS ONE Stop: 07/22/19 14:35 Last Admin: 07/22/19 14:36 Dose: 999 mls/hr Magnesium Sulfate 4 gm/ Premix 100 mls @ 50 mls/hr IV ONETIME ONE Stop: 07/22/19 19:47 Magnesium Sulfate 4 gm/ Premix 100 mls @ 300 mls/hr IV BOLUS ONE Stop: 07/22/19 18:12 Magnesium Sulfate (Magnesium Sulfate In Water Premix) 20 gm in 500 mls @ 50 mls /hr IV ASDIRECTED [facility]; Protocol Tranexamic Acid 1,000 mg/ (Sodium Chloride) 110 mls @ 660 mls/hr IV ONETIME PRN PRN Reason: Bleeding Lactated Ringer's (Ringers, Lactated) 1,000 mls @ 150 mls/hr IV ASDIRECTED [facility] Oxytocin/Sodium Chloride (Oxytocin 30 Unit/500 Ml-Ns) 30 unit in 500 mls @ 999 mls/hr IV TITRATE [facility]ENOK Acetaminophen (Ofirmev) Confirm Administered Dose 100 mls @ as directed .ROUTE .STK-MED ONE Stop: 07/22/19 22:54 Ketorolac Tromethamine (Toradol) 30 mg IVPUSH Q6H [facility] Stop: 07/23/19 23:16 Last Admin: 07/24/19 03:11 Dose: Not Given Ketorolac Tromethamine (Toradol) 30 mg IVPUSH ONETIME ONE Stop: 07/24/19 03:10 Last Admin: 07/24/19 03:19 Dose: 30 mg Lidocaine HCl (Xylocaine 1%) 50 ml INJECT ONETIME PRN PRN Reason: Laceration repair Methylergonovine Maleate (Methergine) 0.2 mg IM ASDIRECTED PRN PRN Reason: Post Hemorrhage Misoprostol (Cytotec) 200 mcg PO ONETIME PRN PRN Reason: Post Hemorrhage Morphine Sulfate (Morphine) Confirm Administered Dose 10 mg .ROUTE .STK-MED ONE Stop: 07/22/19 22:37 Morphine Sulfate (Morphine) Confirm Administered Dose 10 mg .ROUTE .STK-MED ONE Stop: 07/22/19 23:08 Morphine Sulfate (Morphine) 4 mg IVPUSH Q4HR PRN PRN Reason: Pain Nalbuphine HCl (Nubain) 10 mg IVPUSH Q1H PRN PRN Reason: Pain (severe 7-10) Octyl Cyanoacrylate (Dermabond Advance) Confirm Administered Dose 1 applic .ROUTE .STK-MED ONE Stop: 07/22/19 22:54 Last Admin: 07/22/19 23:30 Dose: 1 applic Ondansetron HCl (Zofran) Confirm Administered Dose 4 mg .ROUTE .STK-MED ONE Stop: 07/22/19 22:09 Oxytocin (Pitocin) Confirm Administered Dose 20 unit .ROUTE .STK-MED ONE Stop: 07/22/19 22:37 Oxytocin (Pitocin) Confirm Administered Dose 20 unit .ROUTE .STK-MED ONE Stop: 07/22/19 23:22 Propofol (Diprivan 20 Ml) Confirm Administered Dose 200 mg .ROUTE .STK-MED ONE Stop: 07/22/19 22:10 Propofol (Diprivan 20 Ml) Confirm Administered Dose 200 mg .ROUTE .STK-MED ONE Stop: 07/22/19 22:34 Sterile Water (Sterile Water For Irrigation) 1,000 ml IRR ASDIRECTED PRN PRN Reason: delivery Terbutaline Sulfate (Brethine) 0.25 mg SUBCUT Q30M HENOK Last Admin: 07/22/19 15:51 Dose: 1 mg - Exam General: Reports: Alert, Oriented, Cooperative, Mild Distress Lungs: Reports: Normal Respiratory Effort GI/Abdominal Exam: Soft, Non-Tender (Female) Exam: Deferred Rectal (Female) Exam: Deferred Back Exam: Reports: Normal Inspection, Full Range of Motion Extremities: Normal Inspection, Normal Range of Motion, Non-Tender, Normal Capillary Refill Skin: Reports: Warm, Dry, Intact Wound/Incisions: Reports: Healing Well Neurological: Reports: No New Focal Deficit, Normal Gait, Normal Speech, Normal Tone Psy/Mental Status: Reports: Alert
[2019-07-24 14:03] VITALS: BP 112/55; PULSE 86
== END 2019-07-24 12:21 | disposition home or self-care (01) | DRG 540 ==
LOC: MW.OB 12:37 → MW.OBCHECK 12:37 → MW.OB 22:33 → OBSVTOIN 23:03
PROVIDERS: ADMIT Obstetrics & Gynecology; ATTEND Obstetrics & Gynecology
PROC: 10D00Z1 Extraction of Products of Conception, Low, Open Approach (ICD-10-PCS; principal; 2019-07-22)
DX: O60.14X0 Preterm labor third trimester with preterm delivery third trimester, not applicable or unspecified (principal); O32.1XX0 Maternal care for breech presentation, not applicable or unspecified; Z37.0 Single live birth; Z3A.31 31 weeks gestation of pregnancy
CPT/HCPCS: 36415; 51702; 59025; 76819; 76819-26; 81001; 85014; 85018; 85027; 86592; 86850; 86900; 86901; 87480; 87510; 87660; A9270-GY; J0131; J0690; J0702; J1170; J1885; J2270; J2405; J2590; J2704; J3010; J3105; J7120

== ENCOUNTER 2020-11-02 00:29 | Emergency (ER) | payer BC ==
[2020-11-02 00:51] VITALS: BP 135/79; PULSE 98
--- NOTE | 2020-11-02 00:57 | EDM.PDOC ---
ED HPI GENERAL MEDICAL PROBLEM - General Chief Complaint: General Stated Complaint: ANXIETY ATTACK Time Seen by Provider: 11/02/20 00:31 - History of Present Illness INITIAL COMMENTS - FREE TEXT/NARRATIVE: History of present illness: [] This patient who sees a counselor for anxiety was at work when it got very hot. She got overheated and she felt like it was hard to breathe. Then she had a panic attack in the bathroom. When she came out she collapsed her knees without loss of consciousness. She feels better now. She did not have tingling in her fingers or lips at the time. She has no significant risk for pulmonary embolus. She is active and working. She has no history of smoking is not on control pills and has no recent immobilization surgery or cast. She has no personal or family history of thromboembolic disease. Review of systems: As per history of present illness and below otherwise all systems reviewed and negative. Past medical history: As per history of present illness and as reviewed below otherwise noncontributory. Surgical history: As per history of present illness and as reviewed below otherwise noncontributory. Social history: No reported history of drug or alcohol abuse. Family history: As per history of present illness and as reviewed below otherwise noncontributory. Physical exam: Constitutional - well developed, well-nourished and in no acute distress HEENT - normocephalic, no evidence of trauma - external nose and mouth normal - no mass in neck and no JVD - mucosae moist EYES - full EOM, PERRL, no icterus - no evidence of inflammation, injection, or drainage Respiratory - no respiratory distress, equal bilateral expansion, lungs clear to auscultation and no abnormal lung sounds Cardiovascular - Regular Rhythm with S1 and S2 appreciated and no murmur, gallop or rub. GI - abdomen soft without distension or organomegaly - - no guard or rebound Musculoskeletal no gross deformity of long bones or joints - no tenderness, swelling or edema Neurologic - Alert and oriented times four - CN II-XII grossly intact - motor sensory and coordination symmetrically normal Psychiatric - appropriate mood and affect with normal thought content Integument - no rash or evidence of trauma - normal turgor Diagnostics: [] Therapeutics: [] Impression: [] Plan: [] Definitive disposition and diagnosis as appropriate pending reevaluation and review of above. - Related Data Allergies Allergy/AdvReac Type Severity Reaction Status Date / Time Sulfa (Sulfonamide Allergy Rash Verified 11/02/20 00:45 Antibiotics) Home Meds: Home Meds . [No Known Home Meds] 11/02/20 [History] Past Medical History - Past Health History Medical/Surgical History: Denies Medical/Surgical History SIDE BOSS History: Reports: Psychiatric History: Reports: Anxiety, Panic Attack Social & Family History - Family History Family Medical History: No Pertinent Family History - Caffeine Use Caffeine Use: Reports: None - Recreational Drug Use Recreational Drug Use: No ED ROS GENERAL - Review of Systems Review Of Systems: Comprehensive ROS is negative, except as noted in HPI. ED EXAM, GENERAL - Physical Exam Exam: See Below Free Text/Narrative:: My physical exam is in the HPI Course - Vital Signs Last Recorded V/S: Last Vital Signs Temp 36.1 C 11/02/20 00:43 Pulse 98 11/02/20 00:43 Resp 16 11/02/20 00:43 BP 135/79 11/02/20 00:43 Pulse Ox 96 11/02/20 00:43 Departure - Departure Time of Disposition: 00:53 Disposition: Home, Self-Care 01 Condition: Good Clinical Impression: Hyperventilation syndrome, Anxiety - Discharge Information Instructions: Managing Anxiety, Adult, Hyperventilation Referrals: Jed Castro MD [Primary Care Provider] - Additional Instructions: [facility] Address: [address] [place] [id number] Hours: walk in 9 AM M-F [facility] [address] [place] [id number] [id number] The following information is given to patients seen in the emergency department who are being discharged to home. This information is to outline your options for follow-up care. We provide all patients seen in our emergency department with a follow-up referral. The need for follow-up, as well as the timing and circumstances, are variable depending upon the specifics of your emergency department visit. If you don't have a primary care physician on staff, we will provide you with a referral. We always advise you to contact your personal physician following an emergency department visit to inform them of the circumstance of the visit and for follow-up with them and/or the need for any referrals to a consulting specialist. The emergency department will also refer you to a specialist when appropriate. This referral assures that you have the opportunity for follow-up care with a specialist. All of these measure are taken in an effort to provide you with optimal care, which includes your follow-up. Under all circumstances we always encourage you to contact your private physician who remains a resource for coordinating your care. When calling for follow-up care, please make the office aware that this follow-up is from your recent emergency room visit. If for any reason you are refused follow-up, please contact the [facility] Emergency Department at and asked to speak to the emergency department charge nurse. Sepsis Event Note (ED) - Evaluation Sepsis Screening Result: No Definite Risk - Focused Exam Vital Signs: Vital Signs Temp Pulse Resp BP Pulse Ox 11/02/20 00:43 36.1 C 98 16 135/79 96
== END 2020-11-02 01:11 | disposition home or self-care (01) ==
LOC: MW.ED 00:29
DX: F41.9 Anxiety disorder, unspecified (principal); R06.4 Hyperventilation; Z88.2 Allergy status to sulfonamides
CPT/HCPCS: 99283

== ENCOUNTER 2022-03-19 16:58 | Emergency (ER) | payer BC ==
[2022-03-19 17:55] VITALS: BP 99/58; PULSE 81
== END 2022-03-19 17:55 | disposition home or self-care (01) ==
LOC: MW.ED 16:58
DX: O9A.212 Injury, poisoning and certain other consequences of external causes complicating pregnancy, second trimester (principal); S09.90XA Unspecified injury of head, initial encounter; W18.30XA Fall on same level, unspecified, initial encounter; Z3A.21 21 weeks gestation of pregnancy
CPT/HCPCS: 99282; 99283

== ENCOUNTER 2022-07-13 18:24 | Inpatient (IN) | payer BC ==
[2022-07-13] MEDS ORDERED: Sodium Chloride 0.9% 10 ML Syringe FLUSH PRN (20:33)
[2022-07-13] MEDS ORDERED: Sodium Chloride 0.9% 20 ML SDV IV PRN (20:33)
[2022-07-13] MEDS ORDERED: Lidocaine 1% 50 ML MDV INJECT PRN (20:33)
[2022-07-13] MEDS ORDERED: Sodium Chloride 0.9% 2.5 ML Syringe FLUSH PRN (20:33)
[2022-07-13] MEDS ORDERED: Misoprostol 200 MCG Tab PO PRN (20:33)
[2022-07-13] MEDS ORDERED: Citric Acid/Sodium Citrate Solution 30 ML Cup PO ONE (20:33)
[2022-07-13] MEDS ORDERED: Methylergonovine 0.2 MG/1 ML Amp IM PRN ×2 (20:33→22:45)
[2022-07-13] MEDS ORDERED: Carboprost Tromethamine 250 MCG/1 ML Amp IM PRN (20:33)
[2022-07-13] MEDS ORDERED: Tranexamic Acid 1,000 MG in Sodium Chloride 0.9% 100 ML IV PRN ×2 (20:33→22:45)
[2022-07-13] MEDS ORDERED: Butorphanol 1 MG/ML SDV IVPUSH PRN (20:33)
[2022-07-13] MEDS ORDERED: Water For Irrigation,Sterile 1,000 ML Container IRR PRN (20:33)
[2022-07-13] MEDS ORDERED: Lactated Ringers 1,000 ML IV SCH ×3 (20:45→22:45)
[2022-07-13] MEDS ORDERED: Oxytocin/0.9 % Sodium Chloride 30 UNIT/500 ML BAG IV SCH ×3 (20:45→22:45)
[2022-07-13] MEDS ORDERED: Ondansetron 4 MG/2 ML SDV ONE (22:20)
[2022-07-13] MEDS ORDERED: Phenylephrine 1% 10 MG/ML SDV ONE (22:20)
[2022-07-13] MEDS ORDERED: Oxytocin 10 Units/1 ML SDV ONE (22:20)
[2022-07-13] MEDS ORDERED: Dexamethasone 4 MG/ML 5 ML MDV ONE (22:20)
[2022-07-13] MEDS ORDERED: Lidocaine 2% 5 ML SDV ONE (22:20)
[2022-07-13] MEDS ORDERED: Ketorolac 30 MG/ML SDV ONE (22:20)
[2022-07-13] MEDS ORDERED: Morphine PF 10 MG/10 ML SDV ONE (22:20)
[2022-07-13] MEDS ORDERED: fentaNYL 100 MCG/2 ML SDV ONE (22:20)
[2022-07-13] MEDS ORDERED: ceFAZolin 1 GM Vial ONE (22:20)
[2022-07-13] MEDS ORDERED: Bisacodyl 10 MG Supp RECTAL PRN (22:45)
[2022-07-13] MEDS ORDERED: Lanolin 100% Cream 7 GM Tube TOP PRN (22:45)
[2022-07-13] MEDS ORDERED: Acetaminophen/oxyCODONE 325-5 MG Tab PO PRN ×2 (22:45)
[2022-07-13] MEDS ORDERED: Misoprostol 200 MCG Tab RECTAL PRN (22:45)
[2022-07-13] MEDS ORDERED: diphenhydrAMINE 50 MG/ML SDV IVPUSH PRN (22:45)
[2022-07-13] MEDS ORDERED: Oxytocin 10 Units/1 ML SDV IM PRN (22:45)
[2022-07-13] MEDS ORDERED: Ropivacaine 0.5% 5 MG/ML 30 ML SDV ONE (22:59)
[2022-07-13] MEDS ORDERED: Dexmedetomidine 200 MCG/2 ML SDV ONE (23:00)
[2022-07-14] MEDS ORDERED: ePHEDrine 50 MG/ML SDV IVPUSH PRN (00:03)
[2022-07-14] MEDS ORDERED: fentaNYL 50 MCG/ML SDV IVPUSH PRN (00:03)
[2022-07-14] MEDS ORDERED: Acetaminophen/oxyCODONE 325-5 MG Tab PO PRN (00:03)
[2022-07-14] MEDS ORDERED: Metoclopramide 10 MG/2 ML SDV IVPUSH PRN (00:03)
[2022-07-14] MEDS ORDERED: Naloxone 0.4 MG/ML SDV IVPUSH PRN (00:03)
[2022-07-14] MEDS ORDERED: Morphine 2 MG/ML SYRINGE IVPUSH PRN (00:03)
[2022-07-14] MEDS ORDERED: Ondansetron 4 MG/2 ML SDV IVPUSH PRN ×2 (00:03)
[2022-07-14] MEDS ORDERED: diphenhydrAMINE 50 MG/ML SDV IVPUSH PRN (00:03)
[2022-07-14] MEDS ORDERED: Albuterol 0.083% 2.5 MG/3 ML Neb Soln NEB PRN (00:03)
[2022-07-14] MEDS ORDERED: fentaNYL 100 MCG/2 ML SDV IVPUSH PRN (00:03)
[2022-07-14] MEDS ORDERED: HYDROmorphone 1 MG/ML Syringe IVPUSH PRN (00:03)
[2022-07-14] MEDS ORDERED: Phenylephrine HCl In 0.9% NaCl 1 MG/10 ML Vial IVPUSH SCH (00:15)
[2022-07-14] MEDS: Ondansetron 4 MG/2 ML SDV IVPUSH PRN ×2 (00:31→06:18)
[2022-07-14] MEDS: Ketorolac 30 MG/ML SDV IVPUSH SCH ×4 (00:32→17:31)
[2022-07-14] MEDS: Docusate Sodium 100 MG Cap PO SCH ×2 (09:00→21:46)
[2022-07-15] MEDS: Ketorolac 30 MG/ML SDV IVPUSH SCH (00:43)
[2022-07-15] MEDS ORDERED: Ibuprofen 800 MG Tab PO PRN (06:00)
[2022-07-15 08:04] VITALS: BP 104/63; PULSE 79
[2022-07-15] MEDS: Docusate Sodium 100 MG Cap PO SCH (08:13)
[2022-07-15] MEDS ORDERED: Acetaminophen 500 MG Tab PO PRN (09:27)
== END 2022-07-15 13:26 | disposition home or self-care (01) | DRG 540 ==
LOC: MW.OBCHECK 18:24 → MW.OB 18:26 → MW.OBCHECK 20:36 → MW.OB 20:37 → OBSVTOIN 23:06 → MW.OB 07-14 02:23
PROVIDERS: ADMIT Obstetrics & Gynecology Obstetrics; ATTEND Obstetrics & Gynecology Obstetrics
PROC: 10D00Z1 Extraction of Products of Conception, Low, Open Approach (ICD-10-PCS; principal; 2022-07-13)
DX: O34.211 Maternal care for low transverse scar from previous cesarean delivery (principal); Z3A.38 38 weeks gestation of pregnancy; Z37.0 Single live birth; O99.344 Other mental disorders complicating childbirth; F41.9 Anxiety disorder, unspecified; Z20.822 Contact with and (suspected) exposure to COVID-19
CPT/HCPCS: 01961; 36415; 64488; 85014; 85018; 85027; 86592; 86850; 86900; 86901; 87480; 87510; 87660; A9270-GY; J0690; J1100; J1885; J2274; J2370; J2405; J2590; J2765; J2795; J3010; J3490; J7120; U0002

== ENCOUNTER 2023-08-16 08:29 | Emergency (ER) | payer BC ==
[2023-08-16 09:54] LABS: APPEARANCE,URINE SLT CLOUDY; BILIRUBIN,URINE NEGATIVE (NEGATIVE); GLUCOSE,URINE NEGATIVE (NEGATIVE); KETONES,URINE TRACE mg/dL (NEGATIVE); LEUKOCYTE ESTERASE,URINE NEGATIVE (NEGATIVE); NITRITE,URINE NEGATIVE (NEGATIVE); OCCULT BLOOD,URINE NEGATIVE (NEGATIVE); PROTEIN,URINE NEGATIVE (NEGATIVE)
[2023-08-16 09:55] LABS: COLOR,URINE DARK YELLOW
[2023-08-16 10:19] VITALS: BP 105/50; PULSE 71
[2023-08-16 11:53] LABS: CANDIDA DNA PROBE NEGATIVE (NEGATIVE); GARDNERELLA DNA PROBE POSITIVE (NEGATIVE); TRICHOMONAS DNA PROBE NEGATIVE (NEGATIVE)
== END 2023-08-16 10:19 | disposition home or self-care (01) ==
LOC: MW.ED 08:29
DX: O23.591 Infection of other part of genital tract in pregnancy, first trimester (principal); Z79.899 Other long term (current) drug therapy; Z88.2 Allergy status to sulfonamides; Z3A.12 12 weeks gestation of pregnancy
CPT/HCPCS: 81003; 87480; 87510; 87660; 99283; 99284

== ENCOUNTER 2024-02-06 03:13 | Inpatient (IN) | payer BC ==
[2024-02-06] MEDS ORDERED: Bupivacaine 0.25% 30 ML SDV ONE (03:49)
[2024-02-06] MEDS ORDERED: Ropivacaine 0.5% 5 MG/ML 30 ML SDV ONE (03:49)
[2024-02-06] MEDS ORDERED: ceFAZolin 1 GM Vial ONE (03:49)
[2024-02-06] MEDS ORDERED: Oxytocin 10 Units/1 ML SDV ONE (03:49)
[2024-02-06] MEDS ORDERED: Morphine PF 10 MG/10 ML SDV ONE (03:49)
[2024-02-06] MEDS ORDERED: Ondansetron 4 MG/2 ML SDV ONE (03:49)
[2024-02-06] MEDS ORDERED: EPINEPHrine 1 MG/1 ML Amp ONE (03:49)
[2024-02-06] MEDS ORDERED: fentaNYL 100 MCG/2 ML SDV ONE (03:49)
[2024-02-06] MEDS ORDERED: Ketorolac 30 MG/ML SDV ONE (03:49)
[2024-02-06] MEDS ORDERED: Tranexamic Acid 1,000 MG/10 ML Vial ONE (03:55)
[2024-02-06] MEDS ORDERED: Phenylephrine HCl In 0.9% NaCl 1 MG/10 ML Syringe ONE ×2 (04:09→04:43)
[2024-02-06] MEDS ORDERED: Azithromycin 500 MG Vial ONE (04:11)
[2024-02-06] MEDS ORDERED: fentaNYL 100 MCG/2 ML SDV IVPUSH PRN (05:30)
[2024-02-06] MEDS ORDERED: Ondansetron 4 MG/2 ML SDV IVPUSH PRN ×3 (05:30→05:34)
[2024-02-06] MEDS ORDERED: droPERidol 5 MG/2 ML SDV IVPUSH PRN (05:30)
[2024-02-06] MEDS ORDERED: Acetaminophen/oxyCODONE 325-5 MG Tab PO PRN (05:30)
[2024-02-06] MEDS ORDERED: HYDROmorphone 1 MG/ML Syringe IVPUSH PRN (05:30)
[2024-02-06] MEDS ORDERED: diphenhydrAMINE 50 MG/ML SDV IVPUSH PRN (05:30)
[2024-02-06] MEDS ORDERED: Nalbuphine 10 MG/1 ML Vial IVPUSH PRN (05:30)
[2024-02-06] MEDS ORDERED: Albuterol 0.083% 2.5 MG/3 ML Neb Soln NEB PRN (05:30)
[2024-02-06] MEDS ORDERED: Naloxone 0.4 MG/ML SDV IVPUSH PRN (05:30)
[2024-02-06] MEDS ORDERED: Morphine 2 MG/ML SYRINGE IVPUSH PRN (05:30)
[2024-02-06] MEDS ORDERED: fentaNYL 50 MCG/ML SDV IVPUSH PRN (05:30)
[2024-02-06] MEDS ORDERED: Phenylephrine HCl In 0.9% NaCl 1 MG/10 ML Syringe IVPUSH PRN (05:30)
[2024-02-06] MEDS ORDERED: ePHEDrine 50 MG/ML SDV IM PRN (05:31)
[2024-02-06] MEDS ORDERED: Misoprostol 200 MCG Tab RECTAL PRN (05:34)
[2024-02-06] MEDS ORDERED: Sodium Chloride 0.9% 10 ML Syringe FLUSH PRN (05:34)
[2024-02-06] MEDS ORDERED: Diphtheria,Pertussis(Acell),Tetanus Vaccine 0.5 ML Syringe IM ONE (05:34)
[2024-02-06] MEDS ORDERED: oxyCODONE 5 MG Tab PO PRN (05:34)
[2024-02-06] MEDS ORDERED: Sodium Chloride 0.9% 2.5 ML Syringe FLUSH PRN (05:34)
[2024-02-06] MEDS ORDERED: Measles, Mumps & Rubella Vaccine 0.5 ML SDV SUBCUT ONE (05:34)
[2024-02-06] MEDS ORDERED: Carboprost Tromethamine 250 MCG/1 mL Vial IM PRN (05:34)
[2024-02-06] MEDS ORDERED: Methylergonovine 0.2 MG/1 ML Amp IM ONE (05:34)
[2024-02-06] MEDS ORDERED: Tranexamic Acid 1,000 MG in Sodium Chloride 0.9% 100 ML IV PRN (05:34)
[2024-02-06 05:38] LABS: HEMATOCRIT 39.9 % (37.0-47.0); HEMOGLOBIN 13.5 g/dL (12.0-16.0); IMMATURE GRAN ABSOLUTE AUTO 0.06 K/uL (0.00-0.05); IMMATURE GRAN PERCENT AUTO 0.5 % (0.0-0.4); MEAN CORPUSCULAR HEMOGLOBIN 27.4 pg (28.0-32.0); MEAN CORPUSCULAR HGB CONC 33.8 g/dL (32.0-36.0); MEAN CORPUSCULAR VOLUME 80.9 fL (83.0-99.0); MEAN PLATELET VOLUME 11.6 fL (9.4-12.3); PLATELET COUNT,PLT 224 K/uL (150-400); RED BLOOD CELL COUNT 4.93 M/uL (4.10-5.30); WHITE BLOOD CELL COUNT,WBC 11.06 K/uL (3.9-11.3)
[2024-02-06] MEDS ORDERED: Oxytocin/0.9 % Sodium Chloride 30 UNIT/500 ML BAG IV SCH (05:45)
[2024-02-06 05:50] LABS: PH,UMBILICAL ARTERIAL 7.083 (7.18-7.38); PH,UMBILICAL VENOUS 7.141 (7.25-7.45)
[2024-02-06] MEDS: Acetaminophen 1,000 MG in Premix Bag 1 BAG IV SCH (06:06)
[2024-02-06] MEDS: Metoclopramide 10 MG/2 ML SDV IVPUSH PRN (06:48)
[2024-02-06] MEDS ORDERED: Lactated Ringers 1,000 ML IV SCH (09:15)
[2024-02-06] MEDS: Ketorolac 30 MG/ML SDV IVPUSH SCH (10:35)
[2024-02-06] MEDS: Docusate Sodium 100 MG Cap PO PRN (10:40)
[2024-02-07] MEDS ORDERED: oxyCODONE 5 MG Tab PO PRN (05:34)
[2024-02-07 06:50] LABS: BASOPHILS ABSOLUTE AUTO 0.02 K/uL (0.00-0.20); BASOPHILS PERCENT AUTO 0.2 % (0.0-1.0); EOSINOPHILS ABSOLUTE AUTO 0.04 K/uL (0.00-0.45); EOSINOPHILS PERCENT AUTO 0.4 % (0.0-6.0); HEMATOCRIT 28.2 % (37.0-47.0); HEMOGLOBIN 9.5 g/dL (12.0-16.0); IMMATURE GRAN ABSOLUTE AUTO 0.04 K/uL (0.00-0.05); IMMATURE GRAN PERCENT AUTO 0.4 % (0.0-0.4); LYMPHOCYTES PERCENT AUTO 16.3 % (24.0-44.0); MEAN CORPUSCULAR HEMOGLOBIN 27.7 pg (28.0-32.0); MEAN CORPUSCULAR HGB CONC 33.7 g/dL (32.0-36.0); MEAN CORPUSCULAR VOLUME 82.2 fL (83.0-99.0); MEAN PLATELET VOLUME 11.3 fL (9.4-12.3); MONOCYTES PERCENT AUTO 8.7 % (0.0-8.0); NEUTROPHILS ABSOLUTE AUTO 6.81 K/uL (1.80-7.70); PLATELET COUNT,PLT 148 K/uL (150-400); RED BLOOD CELL COUNT 3.43 M/uL (4.10-5.30); WHITE BLOOD CELL COUNT,WBC 9.21 K/uL (3.9-11.3)
[2024-02-07] MEDS: Acetaminophen 500 MG Tab PO SCH (06:53)
[2024-02-07] MEDS: Ibuprofen 800 MG Tab PO SCH (10:54)
[2024-02-07] MEDS ORDERED: Acetaminophen 500 MG Tab ONE (11:59)
[2024-02-08 17:25] VITALS: BP 130/73; PULSE 80
== END 2024-02-08 17:31 | disposition home or self-care (01) | DRG 540 ==
LOC: MW.OBCHECK 03:13 → MW.OB 03:14 → MW.OBCHECK 03:18 → OBSVTOIN 04:25 → MW.OB 10:31
PROVIDERS: ADMIT Obstetrics & Gynecology; ATTEND Obstetrics & Gynecology Obstetrics
PROC: 10D00Z1 Extraction of Products of Conception, Low, Open Approach (ICD-10-PCS; principal; 2024-02-06 04:15)
DX: O34.211 Maternal care for low transverse scar from previous cesarean delivery (principal); Z37.0 Single live birth; O77.0 Labor and delivery complicated by meconium in amniotic fluid; Z3A.38 38 weeks gestation of pregnancy; O66.40 Failed trial of labor, unspecified
CPT/HCPCS: 36415; 59514; 82803; 85025; 85027; 86592; 86850; 86900; 86901; A9270-GY; J0131; J0171; J0456; J0665; J0690; J1100; J1885; J2274; J2371; J2405; J2590; J2765; J2795; J3010; J3490